=== PATIENT | female | born 1965 | race Caucasian/White ===

== ENCOUNTER 2023-06-01 11:22 | Outpatient (AMB) | payer MEDICARE, MEDICAID, SELFPAY ==
--- NOTE | 2023-06-01 11:24 | MHC.OFFVIS ---
Intake Vital Signs 06/01/23 11:27 Height 5 ft 9.5 in Weight 186 lb BMI 27.1 BP 126/82 Blood Pressure Location Lt brachial Position Sitting Intake Visit Reasons: POSITIVE HPV/PCP REFERRAL Family Service Aide Required: No Information Interpreted: non-clinical & clinical Accompanied by: Significant Other Allergies No Known Allergies Allergy (Verified 06/01/23 11:28) Post menopausal: Yes (age 48 ) HPI HPI Comments History of Present Illness Details The patient is presenting from to [facility] regarding HPV positive Pap. Report not available. [facility] Surgical History Hx of tonsillectomy Social History Alcohol intake: former Patient Tobacco Use Status: Current everyday Tobacco user Female Reproductive History Menstrual Age of Menarche: 13 Age of menopause: 48 Total pregnancies: 2 Number of Living Children: 1 Ab spontaneous: 1 History of abnormal pap smear: Yes Review of Systems Const All systems reviewed & are unremarkable except as noted in HPI and below Physical Exam Vital Signs: Last Vital Signs BP 126/82 06/01/23 11:27 BMI result Body Mass Index 27.1 General: Yes no CVA tenderness External Female Exam: normal external appearance and normal appearance of the urethra Speculum Exam - Vagina: normal appearance of the vagina, normal palpation, no lesions and no masses Speculum Exam - Cervix: normal appearance of the cervix, normal palpation, no lesions, no masses and nontender Bimanual exam- vagina & uterus: normal bimanual exam, normal palpation, uterine size normal, normal palpation, uterine shape normal, No Cervical tenderness present and non-tender Bimanual Exam- Adnexa, other: normal adnexae Back/Spine/Pelvis Back: no CVA tenderness Office Procedures Colposcopy Before the procedure was started discussed with the patient the procedure, alternatives & all the risks associated with the procedure (bleeding, infection, injury to vagina, bladder, vessels, possible need for transfusion with all its risks) then patient signed the consent HPV positive Speculum inserted, acetic acid used Colposcopy done Transformation zone seen, acetowhite lesions identified at 5+6+7+12+1 o?clock, cervical biopsies taken from 5+6+7+12+1 o?clock, ECC done afterwards. Vaginoscopy of the upper vagina showed no evidence of any aceto-white lesions Monsel solution used for hemostasis. The patient tolerated well . At the end the patient was instructed to call if temp>100.4, abdominal pain, n/v, bleeding; The patient was given the following instructions: nothing per vagina, no intercourse or bath tub use. All questions answered the patient verbalized understanding. Instructed the patient to make an appointment in 2 weeks for follow-up This note was generated with a voice recognition program. Some errors may have been overlooked during the review of this note. Sometimes these errors may affect the content or meaning of a given sentence. [id number] of cervix including upper vagina with biopsy and ECC Procedure code (CPT) selection complete Assessment & Plan Assessment & Plan (1) Cervical high risk HPV (human papillomavirus) test positive: Code(s): R87.810 - Cervical high risk human papillomavirus (HPV) DNA test positive Plan: Discussed with the patient the result of her pap/HPV positive, its significance, risk of progression, persistence, and regression if untreated. the false positive/negative rate being a screening test, the need for diagnostic test -colposcopy, biopsy, endocervical curettage. The patient verbalized understanding and agreed with the plan, all questions answered. Colposcopy done, see procedure note Orders: Orders AMB Colposcopy Today R87.810 - Cervical high risk human papillomavirus (HPV) DNA test positive Coding Level of Care Code New Pt Level 3 (82281) Procedure Only Diagnoses Cervical high risk HPV (human papillomavirus) test positive R87.810 CPT Codes Colposcopy - CPT: 80650-Zeosenuuc of cervix including upper vagina with biopsy and ECC ([id number])
[2023-06-01 11:27] VITALS: BP 126/82; BMI 27.1
== END 2023-06-01 12:26 | disposition home or self-care (01) ==
LOC: HO.HWS 11:22
PROVIDERS: PCP Family Medicine; Visit Provider Obstetrics & Gynecology
DX: R87.810 Cervical high risk human papillomavirus (HPV) DNA test positive (principal)
CPT/HCPCS: 57454; 99203

== ENCOUNTER 2023-06-01 11:22 | Outpatient (REF) | payer MEDICARE, MEDICAID, SELFPAY | END 2023-06-01 11:23 | disposition home or self-care (01) | LOC: HO.LNP 11:22 | PROVIDERS: PCP Family Medicine; Visit Provider Obstetrics & Gynecology | DX: R87.810 Cervical high risk human papillomavirus (HPV) DNA test positive (principal) | CPT/HCPCS: 57454; 88305; 99202 ==

== ENCOUNTER 2023-06-21 07:56 | Outpatient (AMB) | payer MEDICARE, MEDICAID, SELFPAY ==
--- NOTE | 2023-06-21 07:58 | A.OFFVIS_ITS ---
Intake Vital Signs 06/21/23 08:00 Height 5 ft 9.5 in Weight 185 lb 3.013 oz BMI 27.0 BP 112/64 Intake Visit Reasons: colpo results [employer] Person Required: No Information Interpreted: non-clinical & clinical Accompanied by: Spouse Allergies No Known Allergies Allergy (Verified 06/21/23 08:01) Post menopausal: Yes HPI HPI Comments History of Present Illness Details PrA. Endocervix, curettage: Endocervical glandular and scant squamous epithelium; negative for dysplasia. B. Cervix, 1:00, biopsy: Squamous and endocervical glandular mucosa with inflammation and reactive changes; negative for dysplasia. C. Cervix, 5:00, biopsy: Squamous mucosa; negative for dysplasia; no endocervical glandular component present. D. Cervix, 6:00, biopsy: Squamous mucosa; negative for dysplasia; no endocervical glandular component present. E. Cervix, 7:00, biopsy: Squamous mucosa and scant detached endocervical glandular epithelium; negative for dysplasia. F. Cervix, 12:00, biopsy: Squamous and endocervical glandular mucosa with marked inflammation and reactive changes; negative for dysplasia. Comment: There is no previous Pap test at [facility] for correlation. [facility] Surgical History Hx of tonsillectomy Social History Alcohol intake: former Patient Tobacco Use Status: Current everyday Tobacco user Female Reproductive History Menstrual Age of Menarche: 13 Review of Systems Const All systems reviewed & are unremarkable except as noted in HPI and below Reports as per HPI and Reports no additional complaints GI Reports no additional complaints Reports no additional complaints Physical Exam Vital Signs: Last Vital Signs BP 112/64 06/21/23 08:00 BMI result Body Mass Index 27.0 Assessment & Plan Assessment & Plan (1) Cervical high risk HPV (human papillomavirus) test positive: Code(s): R87.810 - Cervical high risk human papillomavirus (HPV) DNA test positive Plan: Discussed with the patient the pathology results of the colposcopy biopsies & endocervical curettage (negative). Discussed with the patient the sensitivity specificity, positive and negative predictive value in detecting cervical cancer in addition discussed the regression, persistence and progression rates. Recommended co-testing in 12 months, if cytology and or HPV are abnormal will proceed was colposcopy biopsy and endocervical curettage. Instructions given to the patient to schedule a co test appointment in 1 year. All questions answered the patient verbalized understanding. Coding Level of Care Code Est Pt Level 3 (31405) Diagnoses Cervical high risk HPV (human papillomavirus) test positive R87.810
[2023-06-21 08:00] VITALS: BP 112/64; BMI 27.0
== END 2023-06-21 09:26 | disposition home or self-care (01) ==
LOC: HO.HWS 07:56
PROVIDERS: PCP Family Medicine; Visit Provider Obstetrics & Gynecology
DX: R87.810 Cervical high risk human papillomavirus (HPV) DNA test positive (principal)
CPT/HCPCS: 99213

== ENCOUNTER → 2023-06-21 07:56 | Outpatient (BNVA) | payer MEDICARE, MEDICAID, SELFPAY | PROVIDERS: PCP Family Medicine; Visit Provider Obstetrics & Gynecology | DX: R87.810 Cervical high risk human papillomavirus (HPV) DNA test positive (principal) | CPT/HCPCS: 99212 ==

== ENCOUNTER 2023-07-29 09:34 | Outpatient (REF) | payer MEDICARE, MEDICAID, SELFPAY ==
[2023-07-29 14:48] LABS: Cholesterol 128 mg/dL (<200); HDL Cholesterol 32 mg/dL (>40); LDL Cholesterol Calculated 21 mg/dL (<100); Triglycerides 377 mg/dL (<150)
== END 2023-07-29 09:35 | disposition home or self-care (01) ==
LOC: HO.CHCLDS 09:34
PROVIDERS: Visit Provider Family Medicine
DX: E78.1 Pure hyperglyceridemia (principal)
CPT/HCPCS: 36415; 80061

== ENCOUNTER 2023-08-02 11:00 | Outpatient (REF) | payer MEDICARE, MEDICAID, SELFPAY ==
[2023-08-08 06:39] LABS: Apolipoprotein B 68 mg/dL (<90)
== END 2023-08-02 11:01 | disposition home or self-care (01) ==
LOC: HO.CHCLDS 11:00
PROVIDERS: Visit Provider Family Medicine
DX: E78.1 Pure hyperglyceridemia (principal)
CPT/HCPCS: 36415; 82172

== ENCOUNTER 2023-11-16 08:49 | Outpatient (REF) | payer MEDICARE, MEDICAID, SELFPAY ==
[2023-11-16 15:29] LABS: Alanine Aminotransferase 48 U/L (0-31); Albumin Level 4.6 g/dL (3.5-5.0); Alkaline Phosphatase 51 U/L (39-117); Anion Gap 16 (12-20); Aspartate Amino Transferase 57 U/L (5-31); Bilirubin Total 0.3 mg/dL (0.0-1.0); Blood Urea Nitrogen 21 mg/dL (9-16); Calcium 10.2 mg/dL (8.4-10.2); Carbon Dioxide 26 mmol/L (22-29); Chloride 106 mmol/L (96-108); Cholesterol 124 mg/dL (<200); Estimated Glomerular Filt Rate 58; Glucose Random 95 mg/dL (60-115); HDL Cholesterol 53 mg/dL (>40); LDL Cholesterol Calculated 44 mg/dL (<100); Potassium 3.9 mmol/L (3.3-5.1); Sodium 144 mmol/L (135-145); Total Protein 7.5 g/dL (6.5-8.0); Triglycerides 135 mg/dL (<150)
== END 2023-11-16 08:50 | disposition home or self-care (01) ==
LOC: HO.CHCLDS 08:49
PROVIDERS: Visit Provider Family Medicine
DX: E78.1 Pure hyperglyceridemia (principal); A04.8 Other specified bacterial intestinal infections
CPT/HCPCS: 36415; 80053; 80061

== ENCOUNTER 2023-12-21 08:28 | Outpatient (REF) | payer MEDICARE, MEDICAID, SELFPAY ==
[2023-12-21 15:26] LABS: Alanine Aminotransferase 32 U/L (0-31); Albumin Level 4.5 g/dL (3.5-5.0); Alkaline Phosphatase 54 U/L (39-117); Anion Gap 14 (12-20); Aspartate Amino Transferase 30 U/L (5-31); Bilirubin Total 0.3 mg/dL (0.0-1.0); Blood Urea Nitrogen 17 mg/dL (9-16); Calcium 10.2 mg/dL (8.4-10.2); Carbon Dioxide 28 mmol/L (22-29); Chloride 106 mmol/L (96-108); Estimated Glomerular Filt Rate > 60; Glucose Random 76 mg/dL (60-115); Potassium 4.1 mmol/L (3.3-5.1); Sodium 144 mmol/L (135-145); Total Protein 7.5 g/dL (6.5-8.0)
== END 2023-12-21 08:29 | disposition home or self-care (01) ==
LOC: HO.CHCLDS 08:28
PROVIDERS: Visit Provider Family Medicine
DX: R74.01 Elevation of levels of liver transaminase levels (principal)
CPT/HCPCS: 36415; 80053

== ENCOUNTER 2024-07-28 13:14 | Outpatient (REF) | payer MEDICARE, MEDICAID, SELFPAY ==
[2024-07-28 14:57] LABS: MANUAL DIFF FLAG NO
[2024-07-28 15:04] LABS: Basophils Percent Auto 0.4 % (0-2); Eosinophils Absolute Auto 0.3 X10*3/uL (0.0-0.4); Eosinophils Percent Auto 4.1 % (0-4); Hematocrit 40.4 % (37.0-47.0); Hemoglobin 13.5 g/dl (12.0-16.0); Imm Gran Abs Auto 0.03 X10*3/uL (0.00-0.03); Imm Gran Pct Auto 0.4 % (0.0-0.4); Mean Corpuscular HGB Conc 33.4 g/dl (31.0-35.0); Mean Corpuscular Hemoglobin 31.2 pg (27.0-33.0); Mean Corpuscular Volume 93.3 fL (80.0-98.0); Mean Platelet Volume 12.5 fL (9.4-12.3); Monocytes Absolute Auto 0.7 X10*3/uL (0.1-1.2); Monocytes Percent Auto 9.6 % (2-11); Neutrophils Percent Auto 56.5 % (45-73); Platelet Count 259 X10*3/uL (160-400); Red Blood Count 4.33 X10*6/uL (4.20-5.50); Red Cell Distribution Width 12.5 % (11.0-16.0)
[2024-07-28 15:51] LABS: Creatinine Urine 193.67 mg/dL; Microalbum/Creatinine Ratio Ur 16.5 ug/mg cr (<30)
[2024-07-28 15:55] LABS: Alanine Aminotransferase 34 U/L (0-31); Albumin Level 4.8 g/dL (3.5-5.0); Alkaline Phosphatase 47 U/L (39-117); Anion Gap 14 (12-20); Aspartate Amino Transferase 44 U/L (5-31); Bilirubin Total 0.5 mg/dL (0.0-1.0); Blood Urea Nitrogen 21 mg/dL (9-16); C Reactive Protein 0.19 mg/dL (< or = 0.50); Carbon Dioxide 28 mmol/L (22-29); Chloride 107 mmol/L (96-108); Cholesterol 140 mg/dL (<200); Estimated Glomerular Filt Rate 54; Glucose Random 88 mg/dL (60-115); HDL Cholesterol 41 mg/dL (>40); LDL Cholesterol Calculated 63 mg/dL (<100); Potassium 4.2 mmol/L (3.3-5.1); Sodium 145 mmol/L (135-145); Total Protein 7.5 g/dL (6.5-8.0); Triglycerides 184 mg/dL (<150)
[2024-07-28 16:10] LABS: TSH reflex Free T4 3.61 uIU/mL (0.32-4.0)
[2024-07-31 22:34] LABS: TS Negative Control Passed; TS Panel A 0; TS Panel B 0; TS Positive Control Passed; TSpotTB Negative (Negative)
== END 2024-07-28 13:15 | disposition home or self-care (01) ==
LOC: HO.CHCLDS 13:14
PROVIDERS: Visit Provider Family Medicine
DX: R74.01 Elevation of levels of liver transaminase levels (principal); E78.1 Pure hyperglyceridemia; R61 Generalized hyperhidrosis
CPT/HCPCS: 36415; 80053; 80061; 82043; 82570; 84443; 85025; 86140; 86481

== ENCOUNTER 2024-08-16 07:51 | Outpatient (REF) | payer MEDICARE, MEDICAID, SELFPAY ==
--- NOTE | ~2024-08-16 | US_ITS ---
EXAMINATION: US COMPLETE ABDOMEN WITH LIVER ELASTOGRAPHY CLINICAL INFORMATION: Elevated liver enzymes. COMPARISON: None available. TECHNIQUE: Real-time imaging of the abdominal viscera. Noninvasive ultrasound liver fibrosis assessment is performed using Zev ElastPQ point quantification shear wave elastography (pSWE) with a C5-2 MHz transducer. Multiple elastography samples are obtained. FINDINGS: PANCREAS: The visualized pancreatic head and body are normal in appearance. The remainder of the pancreas is obscured from visualization by the overlying bowel gas. ABDOMINAL AORTA: The proximal, middle, and distal aortic segments are normal in caliber. INFERIOR VENA CAVA: Visualized portions are normal. LIVER: The liver demonstrates normal size and contour but with slightly increased echogenicity suggesting steatosis. No focal lesion or intrahepatic biliary duct dilatation. The right lobe measures 16.4 cm in length. The left lobe measures 7.2 cm in length. Portal flow is towards the liver (hepatopetal). Shear wave liver elastography median stiffness is 0.18 m/s (reference: normal median stiffness is 1.3 m/s or less). IQR/median stiffness to assess sampling precision is 0.35 (reference: good quality data set is IQR/median stiffness of 0.15 or less). GALLBLADDER: Normal. The gallbladder is physiologically distended without evidence of stones, sludge, polyps, wall thickening or pericholecystic fluid. COMMON BILE DUCT: Normal in caliber measuring 0.4 cm in diameter. RIGHT KIDNEY: Normal. No hydronephrosis. No renal calculi or focal parenchymal lesions. The kidney measures 11.1 cm in maximum dimension. LEFT KIDNEY: Normal. No hydronephrosis. No renal calculi or focal parenchymal lesions. The kidney measures 10.7 cm in maximum dimension. SPLEEN: Normal. The spleen measures 9.4 cm in maximum dimension. FREE FLUID: None. US/US abdomen comp w elastography IMPRESSION: 1. Mildly echogenic liver. 2. Liver elastography: Although measurements are suggestive of compensated advanced chronic liver disease, there is statistical variability of the sampling which decreases accuracy. REFERENCE: Society of Radiologists in Ultrasound Liver Stiffness Thresholds (2019): LIVER STIFFNESS THRESHOLDS: *Liver Stiffness equal or less than 1.3 m/s: High probability of being normal. *Liver Stiffness less than 1.7 m/s: In the absence of other known clinical signs, rules out compensated advanced chronic liver disease. *Liver Stiffness 1.7-2.1 m/s: Suggestive of compensated advanced chronic liver disease but need further test for confirmation. *Liver Stiffness over 2.1 m/s: Rules in compensated advanced chronic liver disease. *Liver Stiffness over 2.4 m/s: Suggestive of clinically significant portal hypertension. QUALITY OF DATA SET: *IQR/Median value equal or less than 0.15 implies a quality data set. *IQR/Median value over 0.15 implies a poor quality data set. SIGNIFICANT CHANGE FROM PRIOR EXAM: Significant change if liver stiffness measurement is 10% or greater from prior exam. OTHER CONSIDERATIONS: The stage of liver fibrosis may be overestimated in the setting of acute hepatitis, liver inflammation, elevated liver function tests, hepatic vascular congestion, obstructive cholestasis, non-fasting state, and infiltrative diseases such as amyloidosis and lymphoma. In some patients with NAFLD, the liver stiffness thresholds for compensated advanced chronic liver disease may be lower. In causes other than viral hepatitis and NAFLD, liver stiffness thresholds are not well established. Electronically signed by: Rob Parker MD 09/28/2024 02:02 PM JOHANA SAHNI
== END 2024-08-16 07:52 | disposition home or self-care (01) ==
LOC: HO.US 07:51
PROVIDERS: PCP Family Medicine; Visit Provider Family Medicine
DX: R74.01 Elevation of levels of liver transaminase levels (principal)
CPT/HCPCS: 76700; 76981

== ENCOUNTER 2025-05-14 08:12 | Outpatient (REF) | payer MEDICARE, MEDICAID, SELFPAY ==
--- NOTE | ~2025-05-14 | XR_ITS ---
CLINICAL HISTORY: 60 yo F with left hip pain, + throcanteric tenderness, send to [facility] Two views of the left hip Comparison: None provided Findings: No acute fracture or dislocation. Moderate degenerative change of the left femoral-acetabular joint. The soft tissues are unremarkable. IMPRESSION: No acute findings. Moderate degenerative changes. This document has been electronically signed by: Sp Esquivel MD on 05/15/2025 11:31:04
--- OUTSIDE RECORDS SUMMARY | 2025-05-14 08:16 | XMS_ITS | Encounter Summary ---
Author Organization [employer] Address [address] [place] [address] Care Team Providers Care Shipyard Laborer Name Role Phone Cecilia Huggins MD Primary Care Provider [phone] Reason for Visit * Reason Onset Date Comments Appointment Request 07/26/2023 Encounter Details Date Type Department Care Team ([facility] st Contact Info) Description 07/26/2023 Telephone [facility] [address], [place] [id number] Cecilia Huggins MD [address] [place] [address] Appointment Request Social History Tobacco Use Types Packs/Day Years Used Date Smoking Tobacco: Every Day Cigarettes Passive Smoke Exposure: Never Smokeless Tobacco: Never Alcohol Use Standard Drinks/Week Comments Never 0 (1 standard drink = 0.6 oz pur e alcohol) Depression Answer Date Recorded Patient Health Questionnaire-9 Score 17 12/07/2022 Depression Answer Date Recorded Patient Health Questionnaire-2 Score 3 12/07/2022 Comments Unknown Sex and Gender Information Value Date Recorded Sex Assigned at Female 09/14/2022 10:39 AM EDT Legal Sex Female 10:39 AM EDT Gender Identity Female 09/14/2022 10:39 AM EDT Sexual Orientation Straight 09/14/2022 10 :39 AM EDT documented as of this encounter Miscellaneous Notes * Telephone Encounter - Amanda Dillon - 07/26/2023 11:32 AM EDT Tc from patients spouse with pt on the line requesting a appt to f/u on US results. States patient was advised to f/u with PCP for additional lab tests including liver and A1C. Please call [phone] documented in this encounter Plan of Treatment Not on file documented as of this encounter Visit Diagnoses Not on filedocumented in this encounter Additional Health Concerns Assessment Noted Time PHQ-9 Depression Total Score: 17 023 2:38 PM EST documented as of this encounter Care Teams Shipyard Laborer Relationship Specialty Start Date End Date Cecilia Huggins MD [address] [place] [id number] PCP - General Family Medicine 01/01/22 documented as of this encounter
== END 2025-05-14 08:13 | disposition home or self-care (01) ==
LOC: HO.HMGCX 08:12
PROVIDERS: PCP Family Medicine; Visit Provider Family Medicine
DX: M25.552 Pain in left hip (principal)
CPT/HCPCS: 73502

== ENCOUNTER → 2025-05-14 08:36 | Outpatient (BNV) | payer MEDICARE, MEDICAID, SELFPAY | PROVIDERS: PCP Family Medicine; Visit Provider Radiology Vascular & Interventional Radiology | DX: M16.12 Unilateral primary osteoarthritis, left hip (principal) | CPT/HCPCS: 73502 ==

== ENCOUNTER 2025-05-14 09:01 | Outpatient (REF) | payer MEDICARE, MEDICAID, SELFPAY ==
[2025-05-14 14:52] LABS: MANUAL DIFF FLAG NO
[2025-05-14 14:57] LABS: Basophils Percent Auto 0.5 % (0-2); Eosinophils Absolute Auto 0.3 X10*3/uL (0.0-0.4); Eosinophils Percent Auto 4.9 % (0-4); Hematocrit 36.9 % (37.0-47.0); Imm Gran Abs Auto 0.02 X10*3/uL (0.00-0.03); Imm Gran Pct Auto 0.3 % (0.0-0.4); Lymphocytes Absolute Auto 2.1 X10*3/uL (1.2-4.9); Lymphocytes Percent Auto 34.5 % (20-40); Mean Corpuscular HGB Conc 32.5 g/dl (31.0-35.0); Mean Corpuscular Hemoglobin 31.1 pg (27.0-33.0); Mean Corpuscular Volume 95.6 fL (80.0-98.0); Mean Platelet Volume 12.6 fL (9.4-12.3); Monocytes Absolute Auto 0.7 X10*3/uL (0.1-1.2); Monocytes Percent Auto 10.8 % (2-11); Platelet Count 218 X10*3/uL (160-400); Red Blood Count 3.86 X10*6/uL (4.20-5.50); Red Cell Distribution Width 12.8 % (11.0-16.0); White Blood Count 6.1 X10*3/uL (4.8-10.8)
[2025-05-14 15:20] LABS: Alanine Aminotransferase 25 U/L (0-31); Albumin Level 4.6 g/dL (3.5-5.0); Alkaline Phosphatase 45 U/L (39-117); Anion Gap 11 (12-20); Aspartate Amino Transferase 32 U/L (5-31); Bilirubin Total 0.3 mg/dL (0.0-1.0); Blood Urea Nitrogen 24 mg/dL (9-16); Calcium 9.5 mg/dL (8.4-10.2); Carbon Dioxide 28 mmol/L (22-29); Chloride 111 mmol/L (96-108); Cholesterol 132 mg/dL (<200); Estimated Glomerular Filt Rate 54; Glucose Random 89 mg/dL (60-115); HDL Cholesterol 45 mg/dL (>40); LDL Cholesterol Calculated 61 mg/dL (<100); Sodium 145 mmol/L (135-145); Total Protein 6.9 g/dL (6.5-8.0); Triglycerides 132 mg/dL (<150)
[2025-05-14 15:41] LABS: TSH reflex Free T4 5.95 uIU/mL (0.32-4.0); Vitamin D 25-OH Total 90.7 ng/mL (>30)
[2025-05-14 16:24] LABS: Free T4 (Free Thyroxine) 0.96 ng/dL (0.71-1.85)
== END 2025-05-14 09:02 | disposition home or self-care (01) ==
LOC: HO.CHCLDS 09:01
PROVIDERS: Visit Provider Family Medicine
DX: E55.9 Vitamin D deficiency, unspecified (principal); E78.1 Pure hyperglyceridemia
CPT/HCPCS: 36415; 80053; 80061; 82306; 84439; 84443; 85025

== ENCOUNTER 2025-07-26 11:14 | Outpatient (REF) | payer MEDICARE, MEDICAID, SELFPAY ==
--- OUTSIDE RECORDS SUMMARY | 2025-07-26 10:45 | XMS_ITS | Encounter Summary ---
Author Organization [employer] Address [address] [place] [address] [address] [place] [address] Care Team Providers Care Wallpaper Printer Helper Name Role Phone Cecilia Huggins MD Primary Care Provider [phone] Reason for Referral * Consultation (Routine) - Pending Review Specialty Diagnoses / Procedures Referred By Troy arora Referred To Contact General Surgery Diagnoses External hemorrhoid, bleeding Cecilia Huggins MD [address] [place] [address] Phone: tel: fax: Referral ID Status Reason Start Date Expiration Date Visits Requested Visits Authorized [id number] Pending Review Specialty Services Required 07/26/2025 07/26/2026 1 1 Reason for Visit * Reason Comments Hemorrhoids Encounter Details Date Type Department Care Team ([facility] Contact Info) Description 07/26/2025 10:45 AM EDT Office Visit [facility] [address] [place], [place] [phone] Cecilia Huggins MD [address] [place], [place] [phone] External hemorrhoid, bleeding (Primary Dx); Unexplained night sweats; Encounter for immunization; Hypertriglyceridemia Social History Tobacco Use Types Packs/Day Years Used Date Smoking Tobacco: Former Cigarettes Passive Smoke Exposure: Never Smokeless Tobacco: Never Alcohol Use Standard Drinks/Week Comments Not Currently 0 (1 standard drink = 0.6 oz pur e alcohol) Depression Answer Date Recorded Patient Health Questionnaire-9 Score 0 05/11/2025 Patient Health Questionnaire-9 Score 0 05/11/2025 Last PHQ-9: Questionnaire Data Not on file 0 05/11/2025 Housing Stability Answer Date Recorded What is your housing situation today? I have [place] box 05/04/[address] you li ve. Do you have problems with any of the following? None of the above 05/04/2025 Food Insecurity Answer Date Recorded Within the past 12 months, y ou worried that your food would run out before you got money to buy more: Never True 05/04/2025 Within the past 12 months,th e food you bought just didn't last and you didn't have enough money to get more: Never True Transportation Answer Date Recorded In the past 12 months, has l ack of transportation kept you from medical appts, meetings, work or from getting things needed for daily living? No 05/04/2025 Utilities Answer Date Recorded In the past 12 months, has t he electric, gas, oil or water company threatened to shut off services in your home? No 05/04/2025 Depression Answer Date Recorded Patient Health Questionnaire-2 Score 0 05/11/2025 Internet Access Answer Date Recorded Internet Access Q1 Yes 05/04/2025 Internet Access Q2 Not on file 05/04/2025 Comments Unknown Sex and Gender Information Value Date Recorded Sex Assigned at Female 09/14/2022 10:39 AM EDT Legal Sex Female 10:39 AM EDT Gender Identity Female 09/14/2022 10:39 AM EDT Sexual Orientation Straight 09/14/2022 10 :39 AM EDT documented as of this encounter Last Filed Vital Signs Vital Sign Reading Time Taken Comments Blood Pressure 115/67 07/26/2025 10:43 AM EDT Pulse 76 07/26/2025 10:43 AM EDT Temperature 37.1 C (98.7 F) 07/26/2025 10:43 AM EDT Respiratory Rate 20 07/26/2025 10:43 AM EDT Oxygen Saturation 98% 07/26/2025 10:43 AM EDT Inhaled Oxygen Concentration - - Weight 78 kg (172 lb) 07/26/2025 10:43 AM EDT Height 176 cm (5' 9.29 ) 07/26/2025 10:43 AM EDT Body Mass Index 25.19 07/26/2025 10:43 AM EDT documented in this encounter Progress Notes * Cecilia Huggins MD - 07/26/2025 10:45 AM EDT Images from the original note were not included. Subjective Patient ID: Jennifer Thapa is a 60 y.o. female who presents for Hemorrhoids. Chief Complaint Rectal mass, feeling a rectal mass , rectal bleeding 2 weeks ago , night sweats, fatigue, unexplained weight gain History of Present Illness Jennifer Thapa presents with a rectal mass and night sweats. She reports feeling a rectal mass that has been present for about 30 years but has recently grown larger. The patient experienced a bowel movement with significant bleeding about 2 weeks ago. She has tried various treatments including Tucks and Preparation H, but has not attempted sitz baths. The hemorrhoids are causing discomfort and are described as pretty inflamed. In addition to the rectal issue, Ms. Thapa complains of night sweats that have been worsening. She reports having to change her sleep shirt twice a night sometimes due to excessive sweating. The patient mentions being in menopause for over 10 years. She also reports feeling exhausted all the time. Ms. Thapa expresses concern about recent weight gain despite increased exercise. She states, I work out every day. I have an oil belt, a bicycle, and I go for walks, and I walk fast, and I'm puttingweight on, and I don't understand why. She describes her diet as minimal, typically consisting of an apple for breakfast and a salad for lunch and dinner. The patient reports adherence to her exercise regimen but expresses frustration with the lack of expected weight loss. She mentions feeling hungry in the middle of the night, which may be affecting her weight management efforts. 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 Gastrointestinal: Positive for rectal bleeding. Review of Systems Objective Visit Vitals BP 115/67 Pulse 76 Temp 98.7 ??F (37.1 ??C) (Oral) Resp 20 Ht 5' 9.29 (1.76 m) Wt 172 lb (78 kg) SpO2 98% BMI 25.19 kg/m?? Smoking Status Former BSA 1.95 m?? Physical Exam Constitutional: General: She is not in acute distress. Appearance: She is not ill-appearing. HENT: Head: Normocephalic and atraumatic. Nose: No congestion. Pulmonary: Effort: Pulmonary effort is normal. No respiratory distress. Breath sounds: Normal breath sounds. Genitourinary: Comments: Very enlarged hemorrhoids at 12 o'clock, with internal area of erosion, swelling Musculoskeletal: Cervical back: Normal range of motion. Neurological: General: No focal deficit present. Mental Status: She is alert. Psychiatric: Mood and Affect: Mood normal. 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 Hemorrhoids Assessment: Patient reports feeling a rectal mass. On examination, hemorrhoids are observed, which are inflamed and larger than previously noted. The patient mentions having had hemorrhoids for about30 years, but they have recently increased in size. There is also evidence of bleeding, with the patient reporting a bowel movement consisting of nothing but blood about 2 weeks ago. Previous conservative treatments including Tucks and Preparation H have been ineffective. Plan: - Prescribe nitroglycerin ointment to reduce inflammation - Refer to surgeon at [facility] for potential hemorrhoid removal - Prescribe biopain medication for pain management - Patient to apply nitroglycerin ointment as directed - Informed patient about the surgical option of removing the affected vein Night Sweats Assessment: Patient reports severe night sweats, requiring changing of sleep shirt twice nightly. Patient reports being post-menopausal for over 10 years. Plan: - Order blood work to check for anemia - Recheck thyroid function - Check hormone levels Unintentional Weight Gain Assessment: Patient reports unintentional weight gain despite increased physical activity, including daily workouts with an oil belt, bicycle, and fast walking. Patient reports minimal food intake. Review of records shows a 5-pound weight gain since last visit. BMI is in the overweight category butnot obese. Current eating habits may be contributing to weight retention due to the body's response to perceived nutrient scarcity. Plan: - Educate patient on importance of regular, balanced meals including protein - Recommend three meals per day with healthy protein sources - Monitor weight at follow-up visits Abnormal Liver Function Tests Assessment: Previous liver function tests were slightly elevated. This may be contributing to the patient's reported fatigue. Plan: - Recheck liver function tests Hyperlipidemia Assessment: Patient has a history of hyperlipidemia, previously treated with medication. Current lipid status unknown. Plan: - Order fasting lipid panel to reassess cholesterol and triglyceride levels Preventive Care Assessment: Patient is due for a Pap smear. Previous Pap in 2022 was positive for HPV, with subsequent specialist follow-up. Patient reports being cleared twice by the specialist. Recent mammogram performed at [facility]. Patient inquired about flu and COVID-19 vaccinations. Plan: - Schedule Pap smear for Wednesday at 9 AM - Retrieve mammogram results from [facility] - Advise patient to get flu and COVID-19 vaccinations at local pharmacy ([employer] or [employer]) when available at the end of July - Offer to add patient to the clinic's vaccination list for notification when vaccines are available - Administer 2nd dose of Hepatitis A vaccine during current visit documented in this encounter Plan of Treatment Upcoming Encounters Date Type Department Care Team (Late st Contact Info) Description 07/30/2025 9:00 AM EDT Procedure Visit [facility] [address] [place] [address] Cecilia Huggins MD [address] [place] [address] Scheduled Orders Name Type Priority Associated Diagnoses Orde r Schedule FSH Lab Routine Unexplained night sweats Expected: 07/26/2025, Expires: 07/26/2026 Estradiol Lab Routine Unexplained night sweats Expected: 07/26/2025, Expires: 07/26/2026 Scheduled Referrals Name Type Priority Associated Diagnoses Orde r Schedule Referral to General Surgery Outpatient Referral Routine External hemorrhoid, bleeding Expected: 07/26/2025 (Approximate), Expires: 07/26/2026 documented as of this encounter Procedures Procedure Name Priority Date/Time Associated Diagnosis Comments LIPID PANEL, STANDARD Routine 07/26/2025 11:18 AM EDT Hypertriglyceridemi a documented in this encounter Results * (ABNORMAL) Lipid Panel, Standard (07/26/2025 11:18 AM EDT) Triglycerides 244(H) <150 mg/dL [facility] Comment:Desirable Triglyceri de: less than 150 mg/dLBorderline High Triglyceride 150-199 mg/dLHigh Triglyceride: 200-499 mg/dLVery High Triglyceride: greater than or equal to 5OO mg/dL Cholesterol 125 <200 mg/dL [facility] Comment:Desirable Cholestero l: less than 200 mg/dLBorderline High Cholesterol: 200-239 mg/dLHigh Cholesterol: greater than 239 mg/dL LDL Cholesterol Calculated 35 <100 mg/dL [facility] Comment:Desirable LDL: less than 100 mg/dLNear Optimal/Above Optimal LDL: 110- 129 mg/dLBorderline High LDL: 130-159 mg/dLHigh LDL: 160-189 mg/dLVery High LDL: greater than or equal to 190 mg/dL HDL Cholesterol 42 >40 mg/dL [facility] Comment:Desirable HDL: great er than 40 mg/dL Note: This HDL assay may give artificially low results in patients with liver disease. Blood Venous blood specimen / Unknown 07/26/2025 11:18 AM EDT 07/26/2025 2:14 PM EDT us Cecilia Huggins MD LAB BLOOD ORDERABLES Final Re sult [facility] [address] [place] [address] [phone] documented in this encounter Visit Diagnoses Diagnosis External hemorrhoid, bleeding- Primary Unexplained night sweats Encounter for immunization Hypertriglyceridemia Pure hyperglyceridemia documented in this encounter Additional Health Concerns Assessment Noted Time PHQ-9 Depression Total Score: 0 05/11/20 25 1:13 PM EDT documented as of this encounter Care Teams Wallpaper Printer Helper Relationship Specialty Start Date End Date Cecilia Huggins MD [address] [place] [address] PCP - General Family Medicine 01/01/22 documented as of this encounter
[2025-07-26 15:00] LABS: Free T4 (Free Thyroxine) 0.89 ng/dL (0.71-1.85)
[2025-07-26 15:01] LABS: Alanine Aminotransferase 26 U/L (0-31); Albumin Level 4.6 g/dL (3.5-5.0); Alkaline Phosphatase 68 U/L (39-117); Aspartate Amino Transferase 32 U/L (5-31); Cholesterol 125 mg/dL (<200); HDL Cholesterol 42 mg/dL (>40); Total Protein 7.1 g/dL (6.5-8.0); Triglycerides 244 mg/dL (<150)
--- OUTSIDE RECORDS SUMMARY | 2025-07-26 15:34 | XMS_ITS | Encounter Summary ---
Author Organization [employer] Address [address] [facility] [address] [place] [address] Care Team Providers Care Sap Architect Name Role Phone Cecilia Huggins MD Primary Care Provider [phone] Reason for Visit * Reason Onset Date Comments Nurse Triage 07/25/2025 Encounter Details Date Type Department Care Team ([facility] st Contact Info) Description 07/25/2025 Telephone [facility] [address] [place], [place] [phone] Cecilia Huggins MD [address] [place] [address] Nurse Triage Social History Tobacco Use Types Packs/Day Years [...] encounter Miscellaneous Notes * Telephone Encounter - Dorothy Mckeon RN - 07/25/2025 8:41 AM EDT Call returned to Jennifer Thapa to triage below at [phone]. Reports having hemmrhoid that is tender to touch. Pt reports having blood in stool approx 1-2 weeks ago x 1 episode. Pt has applied preparation H and tuks pads with no relief. Pt denies any difficulty with passing stool. No blood in stool recently. Pt adviesd of dispositon, agrees to sick onsite with PCP tomorrow. Reviewed home care advise, ER precautions and reasons to call back. Protocol Used: Rectal Symptoms (Adult) Protocol-Based Disposition: See in Office or Video Visit Today or Tomorrow Future Appointments Date Time Provider Department Center 07/26/2025 10:45 AM Cecilia Huggins MD [facility] Insurance verified as active per Real Time Eligibility in [facility]. Positive Triage Question: * Home treatment > 3 days for rectal pain and not improved * All higher-acuity triage questions were negative Care Advice Discussed: * Reassurance and Education - Mild Rectal Pain or Irritation * Warm Saline Sitz Baths - For Rectal Symptoms * Warm Saline Sitz Baths - How to Make a Sitz Bath * Stool Softener (Colace) for Hard Bowel Movements * Preventing Constipation * Reasons To Call Back - Severe rectal pain - You become worse * Telephone Encounter - Fred Ruddy - 07/25/2025 8:29 AM EDT Symptom: Rectal Symptoms - Not Bleeding Outcome: Schedule a same-day appointment or talk to a nurse or provider today Reason: Painful lump. (Pt states that the hemorrhoid is the size of a golf ball The caller accepted this outcome. Contact pt at [phone] documented in this encounter Plan of Treatment Upcoming Encounters Date Type Department Care Team ([facility] st Contact Info) Description 07/30/2025 9:00 AM EDT Procedure Visit [facility] PEDS [address] [place] [address] Cecilia Huggins MD [address] [place] [address] documented as of this encounter Visit Diagnoses Not on filedocumented in this encounter Additional Health Concerns Assessment Noted Time PHQ-9 Depression Total Score: 0 05/11/20 25 1:13 PM EDT documented as of this encounter Care Teams Sap Architect Relationship Specialty Start Date End Date Cecilia Huggins MD [address] [place] [address] PCP - General Family Medicine 01/01/22 documented as of this encounter
--- OUTSIDE RECORDS SUMMARY | 2025-07-26 15:34 | XMS_ITS | Encounter Summary ---
Author Organization [employer] Address [address] [facility] [address] [place] [address] Care Team Providers Care Job Trainer Name Role Phone Cecilia Huggins MD Primary Care Provider [phone] Encounter Details Date Type Department Care Team ([facility] st Contact Info) Description 07/26/2025 Orders Only [facility] [address] [place], [place] [id number] ProviderArgenis MD Social History Tobacco Use Types Packs/Day Years [...] is your housing situation today? I have elliott[place] box 05/04/[address] you [...] t he electric, gas, oil or water [employer] threatened to shut off services in your [...] AM EDT documented as of this encounter Plan of Treatment Upcoming Encounters Date Type Department Care Team (Late st Contact Info) Description 07/30/2025 9:00 AM EDT Procedure Visit [facility] [address] [place] [address] Cecilia Huggins MD [address] [place] [address] documented as of this encounter Procedures Procedure Name Priority Date/Time Associated Diagnosis Comments HM MAMMOGRAPHY Routine 02/16/2025 3:21 PM EDT documented in this encounter Results * Hm Mammography (02/16/2025 3:21 PM EDT) Anatomical Region Laterality Modality Other Historical Provider HEALTH MAINTENANCE Final Result documented in this encounter Visit Diagnoses Not on filedocumented in this encounter Additional Health Concerns Assessment Noted Time PHQ-9 Depression Total Score: 0 05/11/20 25 1:13 PM EDT documented as of this encounter Care Teams Job Trainer Relationship Specialty Start Date End Date Cecilia Huggins MD [address] [place] [address] PCP - General Family Medicine 01/01/22 documented as of this encounter
--- OUTSIDE RECORDS SUMMARY | 2025-07-26 15:34 | XMS_ITS | Encounter Summary ---
Author Organization [employer] Address [address] [place] [address] [address] [place] [address] Care Team Providers Care Risk Management Professional Name Role Phone Cecilia Huggins MD Primary Care Provider [phone] Reason for Visit * Reason Onset Date Comments Appointment Request 07/26/2023 Encounter Details Date Type Department Care Team ([facility] st Contact Info) Description 07/26/2023 Telephone [facility] [address] [place], [place] [phone] Cecilia Huggins MD [address] [place] [address] Appointment Request Social History Tobacco Use Types [...] tests including liver and A1C. Please call [phone] documented in this encounter Plan of Treatment Upcoming Encounters Date Type Department Care Team ([facility] st Contact Info) Description 07/30/2025 9:00 AM EDT Procedure Visit [facility] [address] [place] [address] Cecilia Huggins MD [address] [place] [address] documented as of this encounter Visit Diagnoses Not on filedocumented in this encounter Additional Health Concerns Assessment Noted Time PHQ-9 Depression Total Score: 17 023 2:38 PM EST documented as of this encounter Care Teams Risk Management Professional Relationship Specialty Start Date End Date Cecilia Huggins MD [address] [place] [address] PCP - General Family Medicine 01/01/22 documented as of this encounter
--- OUTSIDE RECORDS SUMMARY | 2025-07-26 15:34 | XMS_ITS | Clinical Summary ---
Author Organization [employer] Address [address] [facility] [address] [place] [address] Care Team Providers Care Data Deliverables Manager Name Role Phone Cecilia Huggins MD Primary Care Provider [phone] Allergies No known active allergies Medications aspirin 81 MG chewable tablet Chew 81 mg. 022 Active Omeprazole 20 MG Tablet Delayed Release Dispersible Take 20 mg by mouth 2 times daily. 28 tablet 023 Active rosuvastatin (Crestor) 40 MG tabletIndications :Hypertriglycerid emia Take 1 tablet (40 mg) by mouth in the morning. 90 tablet 1 025 Active amLODIPine (Norvasc) 10 MG tablet Take 1 tablet (10 mg) by mouth Once per day. 90 tablet 1 025 Active cholecalciferol VITAMIN D (Vitamin D-3) 50 MCG (2000 UT) capsuleIndication s:Vitamin D deficiency, unspecified Take 1 capsule (50 mcg) by mouth Once per day. 90 capsule 1 025 Active fenofibrate (Triglide) 160 MG tabletIndications :Mixed hyperlipidemia TAKE ONE TABLET EVERY MORNING 90 tablet 1 025 Active nitroglycerin (Nitro-Bid) 2 % ointment Place 0.5 inches on the skin every 6 (six) hours during the day. 30 g 025 2025 Active lidocaine (Xylocaine) 5 % ointmentIndicatio ns:External hemorrhoid, bleeding Apply topically if needed for mild pain. 50 g 025 Active docusate sodium (Colace) 100 MG capsule Take 1 capsule (100 mg) by mouth 2 times daily. 60 capsule 3 Active senna-docusate sodium (Senokot-S) 8.6-50 MG tablet Take 2 tablets by mouth Once per day. 60 tablet 2 Active hydrocortisone (Anusol-HC) 25 MG suppository Insert 1 suppository (25 mg) into the rectum 2 times daily for 7 days. 14 suppository 025 2024 Active fenofibrate (Triglide) 160 MG tabletIndications :Mixed hyperlipidemia Take 1 tablet (160 mg) by mouth in the morning. 90 tablet 1 025 2024 Discontinued predniSONE (Deltasone) 20 MG tablet Take 1 tablet (20 mg) by mouth Once per day for 5 days. 5 tablet 025 2024 docusate sodium (Colace) 100 MG capsule Take 1 capsule (100 mg) by mouth 2 times daily for 10 days. 20 capsule 025 2024 Discontinued Active Problems Problem Noted Date Diagnosed Date External hemorrhoid, bleeding 07/26/2025 Unexplained night sweats 07/27/2024 Assessment & Plan (07/27/2024 4:17 PM EDT): Ordering lab work and CXR for further evaluation of Sx. Transaminitis 12/20/2023 Assessment & Plan (07/27/2024 4:17 PM EDT): Ordering lab work for further evaluation. Assessment & Plan (12/20/2023 3:10 PM EST): Patient will be sent for labs: Comprehensive Metabolic Panel, for further evaluation; will follow up with results. TIA (transient ischemic attack) 11/11/2023 High risk HPV infection 09/01/2023 Cervical cancer screening 09/01/2023 Abnormal laboratory test result 07/27/2023 Abnormal Pap smear of cervix 06/03/2023 Overview (06/03/2023): -colpo with Dr. Dowling 06/02/2023 multiple cervical biopsies negative for displasia Hypertriglyceridemia 01/11/2023 Assessment & Plan (07/27/2024 3:50 PM EDT): Discussed medications and refills as needed. Assessment & Plan (11/11/2023 3:28 PM EST): Patient will be send for labs for further evaluation. 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 Consider sending for PFTs. Sleep apnea 12/07/2022 Assessment & Plan (07/27/2024 4:14 PM EDT): Advised to complete second sleep test due to Sx, pt declined wanting to complete test. Assessment & Plan (12/07/2022 4:16 PM EST): Symptoms c/w sleep apnea, also STOP-BANG w/ high risk. Will order sleep study. F/u results Overweight 12/07/2022 Assessment & Plan (07/27/2024 4:16 PM EDT): Pt is interested in weight loss treatment. Is not currently a candidate for Semaglutide treatment, will follow up. Assessment & Plan (12/07/2022 4:22 PM EST): Will check screening labs per request, especially given she has been feeling fatigued in the last couple of weeks. Other abnormal glucose 12/07/2022 Alcohol abuse 04/14/2022 Hypertensive disorder 04/14/2022 Assessment & Plan (07/27/2024 4:15 PM EDT): BP is at goal. Continue medications as prescribed. Ordering lab work for further evaluation. Assessment & Plan (12/07/2022 4:16 PM EST): Controlled. Continue current regimen, recommended avoid alcohol Vitamin D deficiency 04/14/2022 Encounters Date Type Department Care Team Description 07/26/2025 10:45 AM EDT Office Visit [facility] [address] [place] [address] Cecilia Huggins MD External hemorrhoid, bleeding (Primary Dx); Unexplained night sweats; Encounter for immunization; Hypertriglyceridemia 07/26/2025 Orders Only [facility] [address] [place] [address] Argenis Mcintosh MD 07/26/2025 Travel 07/25/2025 Telephone [facility] [address] [place] [address] Cecilia Huggins MD Nurse Triage 07/17/2025 Refill [facility] [address] [place] [address] Mary Lester MD Mixed hyperlipidemia 07/10/2025 Travel 07/10/2025 Telephone [facility] [address] [place] [address] Cecilia Huggins MD Nurse Triage 05/21/2025 Telephone [facility] [address] [place] [address] Cecilia Huggins MD Referral 05/15/2025 Results Follow-Up [facility] [address] [place] [address] Cecilia Huggins MD XR Hip 2 or 3 Views Left, CBC auto differential, Comprehensive Metabolic Panel, Additional followed-up results: 3 05/11/2025 1:00 PM EDT Office Visit [facility] [address] [place] [address] Cecilia Huggins MD Hypertriglyceridemia (Primary Dx); Vitamin D deficiency; Left hip pain; Primary hypertension 05/11/2025 Travel 05/09/2025 Telephone [facility] [address] [place] [address] Cecilia Huggins MD chart prep 05/04/[address] [facility] [address] [place] [address] [phone] Cecilia Huggins MD Pre-visit Planning (SDOH screening negative and Tobacco screening negative) from Last 3 Months Immunizations Immunization Administration Dates Next Due Hep A, Adult 07/26/2025,12/20/2023 Influenza injectable quadriv alent preservative free 07/27/2023,09/15/2022,01/01/2022,2021 Influenza, seasonal, injecta ble, preservative free 07/27/2024 Moderna Covid-19 Vaccine 12+ 12/11/2021, 04/16/2021,04/16/2021,2020 Pneumococcal Conjugate PCV 20 12/20/2023 RSV Bivalent 09/06/2023 Tdap 07/07/2022 Zoster, Recombinant 07/06/2022,05/05/2022 Social History Tobacco Use Types Packs/Day Years Used Date Smoking Tobacco: Former Cigarettes Passive Smoke Exposure: Never Smokeless Tobacco: Never Tobacco Cessation:Counseling Given: Not Answered Alcohol Use Standard Drinks/Week Comments Not Currently [...] Orientation Straight 09/14/2022 10 :39 AM EDT Last Filed Vital Signs Vital Sign Reading [...] Mass Index 25.19 07/26/2025 10:43 AM EDT Plan of Treatment Upcoming Encounters Date Type Department Care Team ([facility] st Contact Info) Description 07/30/2025 9:00 AM EDT Procedure Visit [facility] [address] [place] [address] Cecilia Huggins MD [address] [place] [address] Health Maintenance Due Date Last Done Comments CT Colonography 1965 FIT DNA/Cologuard 1965 FIT 1965 FOBT 1965 Sigmoidoscopy 1965 Hepatitis B Vaccines (1 of 3 - Risk 3-dose series) 2023 Cervical Cancer Screening 06/02/2024 HPV/Cotest 06/02/2024 02/16/2023, 04/0 02/2023, 02/13/2022 Pap Smear 06/02/2024 02/16/2023, 04/0 11/2021, 02/13/2022 Influenza Vaccine (#1) 2025 , 07/27/2023, 09/15/2022, Additional history exists Mammogram 02/16/2026 02/16/2025 SDOH Screening 05/04/2026 05/04/2025 Alcohol/Substance Use Screening 05/11/2026 05/11/2025 Depression Screening 05/11/2026 05/11/2025, 05/11/20 Disability Screening 05/11/2026 05/11/2025 Tobacco Screening 07/26/2026 07/26/2025 Colonoscopy 09/03/2026 09/03/2023 Colorectal Cancer Screening 09/03/2026 Lipid Panel 05/14/2030 07/26/2025, 04/17, 07/28/2024, Additional history exists DTaP/Tdap/Td Vaccines (2 - Td or Tdap) 07/07/2032 07/07/2022 HIV Screening Completed 01/14/2022 Hepatitis C Screening Completed 01/14/2022 Zoster Vaccines Completed 07/06/2022, 05/05/2022 RSV Patients and Patients Aged 60 years or older Completed 09/06/2023 Pneumococcal Vaccine: 50+ Years Completed 12/20/2023 COVID-19 Vaccine Completed 08/04/2024, , 09/15/2022, Additional history exists Hepatitis A Vaccines Completed 07/26/2025, 12/20/19 24 HIB Vaccines Aged Out No longer eligi ble based on patient's age to complete this topic HPV Vaccines Aged Out No longer eligi ble based on patient's age to complete this topic IPV Vaccines Aged Out No longer eligi ble based on patient's age to complete this topic Meningococcal B Vaccine Aged Out No l onger eligible based on patient's age to complete this topic Meningococcal Vaccine Aged Out No irina melvi eligible based on patient's age to complete this topic RSV under 20 months Aged Out No longe r eligible based on patient's age to complete this topic Rotavirus Vaccines Aged Out No longer eligible based on patient's age to complete this topic Procedures Procedure Name Priority Date/Time Associated Diagnosis Comments LIPID PANEL, STANDARD Routine 07/26/2025 11:18 AM EDT Hypertriglyceridemia HEPATIC FUNCTION PANEL Routine 07/26/2025 11:18 AM EDT Transaminitis TSH W/REFLEX TO FT4 Routine 07/26/2025 1 1:18 AM EDT Abnormal TSH Subclinical hypothyroidism T4, FREE Routine 07/26/2025 11:18 AM EDT Abnormal TSH Subclinical hypothyroidism XR HIP 2 OR 3 VIEWS LEFT Routine 05/15/2025 11:31 AM EDT Left hip pain T4, FREE Routine 05/14/2025 12:00 AM EDT VITAMIN D,25-OH,TOTAL,IA Routine 05/14/2025 12:00 AM EDT Vitamin D deficiency LIPID PANEL, STANDARD Routine 05/14/2025 12:00 AM EDT Hypertriglyceridemia TSH W/REFLEX TO FT4 Routine 05/14/2025 1 2:00 AM EDT Hypertriglyceridemia COMPREHENSIVE METABOLIC PANEL Routine 05/14/2025 12:00 AM EDT Hypertriglyceridemia CBC WITH AUTO DIFFERENTIAL Routine 05/14/2025 12:00 AM EDT Hypertriglyceridemia HM MAMMOGRAPHY Routine 02/16/2025 3:21 PM EDT HM COLONOSCOPY Routine 09/03/2023 HPV GENOTYPES 16,18/45 Routine 02/16/2023 2:42 PM EDT IMAGE-GUIDED PAP W/AGE BASED SCR PROTOCOLS Routine 02/16/2023 2:42 PM EDT High risk HPV infection ZZZ HISTORICAL HEPATITIS C AB W/REFL TO HCV RNA, QN, PCR Routine 01/14/2022 9:17 AM EST HIV 1/2 ANTIGEN/ANTIBODY, FOURTH GENERATION W/RFL Routine 01/14/2022 9:17 AM EST from Last 3 Months or Most Recently Relevant to Health Maintenance Results * (ABNORMAL) TSH with Reflex to Free T4 (07/26/2025 11:18 AM EDT) Only the most recent of2 resultswithin the time period is included. TSH reflex Free T4 4.61(H) 0.32 - 4.0 uIU/mL [facility] Blood 07/26/2025 11:1 8 AM EDT 07/26/2025 2:14 PM EDT Cecilia Huggins MD LAB BLOOD ORDERABLES Final Re sult Performing Organization Address [facility] Co de Phone Number [facility] [address] [place] [phone] * T4, Free (07/26/2025 11:18 AM EDT) Only the most recent of2 resultswithin the time period is included. Free T4 (Free Thyroxine) 0.89 0.71 - 1.85 ng/dL [facility] Blood Venous blood specimen / Unknown 07/26/2025 11:18 AM EDT 07/26/2025 2:14 PM EDT Cecilia Huggins MD LAB BLOOD ORDERABLES Final Re sult Performing Organization Address [facility]/ZIP Co de Phone Number [facility] [address] [place] [phone] * (ABNORMAL) Hepatic Function Panel (07/26/2025 11:18 AM EDT) Bilirubin, Total 0.4 0.0 - 1.0 mg/dL [facility] Bilirubin, Direct 0.1 0.0 - 0.5 mg/dL [facility] Aspartate Amino Transferase 32(H) 5 - 31 U/L [facility] Alanine Aminotransferase 26 0 - 31 U/L [facility] Total Protein 7.1 6.5 - 8.0 g/dL [facility] Albumin Level 4.6 3.5 - 5.0 g/dL [facility] Alkaline Phosphatase 68 39 - 117 U/L [facility] Blood Venous blood specimen / Unknown 07/26/2025 11:18 AM EDT 07/26/2025 2:14 PM EDT us Cecilia Huggins MD LAB BLOOD ORDERABLES Final Re sult Performing Organization Address City/[facility]/ZIP Co de Phone Number [facility] [address] [place] [phone] [phone] * (ABNORMAL) Lipid Panel, Standard (07/26/2025 11:18 AM EDT) Only the most recent of2 resultswithin the time period is included. Triglycerides 244(H) <150 mg/dL [facility] Comment:Desirable Triglyceri de: less than 150 mg/dLBorderline High Triglyceride 150-199 mg/dLHigh Triglyceride: 200-499 mg/dLVery High Triglyceride: greater than or equal to 5OO mg/dL Cholesterol 125 <200 mg/dL [facility] Comment:Desirable Cholestero l: less than 200 mg/dLBorderline High Cholesterol: 200-239 mg/dLHigh Cholesterol: greater than 239 mg/dL LDL Cholesterol Calculated 35 <100 mg/dL [facility] Comment:Desirable LDL: less than 100 mg/dLNear Optimal/Above Optimal LDL: 110- 129 mg/dLBorderline High LDL: 130-159 mg/dLHigh LDL: 160-189 mg/dLVery High LDL: greater than or equal to 190 mg/dL HDL Cholesterol 42 >40 mg/dL [facility] Comment:Desirable HDL: great er than 40 mg/dL Note: This HDL assay may give artificially low results in patients with liver disease. Blood Venous blood specimen / Unknown 07/26/2025 11:18 AM EDT 07/26/2025 2:14 PM EDT us Cecilia Huggins MD LAB BLOOD ORDERABLES Final Re sult [facility] [address] [place] [phone] [phone] * XR Hip 2 or 3 Views Left (05/15/2025 11:31 AM EDT) Anatomical Region Laterality Modality Lower Extremities, Hip Left Radiograp hic Imaging 05/15/2025 11:3 1 AM EDT Narrative 05/15/2025 11:32 AM EDT [facility] [address] [place] [address] [place] [address] XRay Report Signed Patient: Jennifer Thapa MR#: [id number] 6 : 1965 Acct:[id number] Age/Sex: 60 / F ADM Date: 05/14/25 Loc: HO.HMGCX Attending Dr: Cecilia Huggins MD Ordering Physician: Cecilia Huggins MD Date of Service: 05/14/25 Procedure(s): XR hip LT min 2V Accession Number(s): [id number] cc: Cecilia Huggins MD CLINICAL HISTORY: 60 yo F with left hip pain, + throcanteric tenderness[facility] of the left hip Comparison: None provided Findings: No acute fracture or dislocation. Moderate degenerative change of the left femoral-acetabular joint. The soft tissues are unremarkable. IMPRESSION: No acute findings. Moderate degenerative changes. This document has been electronically signed by: Sp Esquivel MD on 05/15/2025 11:31:04 Dictated By: Sp Esquivel MD Signed By: <Electronically signed by Sp Esquivel MD in OV> 05/15/25 1131 DD/ 1131 TD/TT: 05/15/25 1131 Sieve Repairer: Procedure Note Donotuseinterpreter, Image - 05/15/2025 [facility] [address] [place] [address] [place] [address] XRay Report Signed Patient: Jennifer Thapa JMR#: [id number] 6 : 1965Acct:[id number] Age/Sex: 60 / FADM Date: 05/14/25 Loc: HO.HMGCX Attending Dr: Cecilia Huggins MD Ordering Physician: Cecilia Huggins MD Date of Service: 05/14/25 Procedure(s): XR hip LT min 2V Accession Number(s): [id number] cc: Cecilia Huggins MD CLINICAL HISTORY: 60 yo F with left hip pain, + throcanteric tenderness,send to [facility] [place] [facility] Two views of the left hip Comparison: None provided Findings: No acute fracture or dislocation. Moderate degenerative change of the left femoral-acetabular joint. The soft tissues are unremarkable. IMPRESSION: No acute findings. Moderate degenerative changes. This document has been electronically signed by: Sp Esquivel MD on 05/15/2025 11:31:04 Dictated By: Sp Esquivel MD Signed By: <Electronically signed by Sp Esquivel MD in OV> 05/15/25 1131 DD/ 1131 TD/TT: 05/15/25 1131 Sieve Repairer: Cecilia Huggins MD IM XR PROCEDURES Final Resul t * Vitamin D, 25-Hydroxy, Total, Immunoassay (05/14/2025 12:00 AM EDT) Vitamin D 25-OH Total 90.7 >30 ng/mL [facility] Comment: Health Based Reference Values*< 20 ng/mL Elcnaovmj79-57 ng/mL Insufficient> 30 ng/mL Sufficient*Dominic BAIRD. N Engl J Med. 2007;357:266-280There is no well-established upper level of normal vitamin Dlevels. Some laboratories use 50 ng/mL as an upper limit ofnormal. However, toxicity is patient-dependent and may occurat any level. Careful correlation with the patient'spresentation is necessary and, if there is concern forvitamin D toxicity, treatment should be consideredirrespective of the serum level.Care must be taken in interpreting Vitamin D results fromdifferent laboratories and methodologies. Published datademonstrated that results from patients undergoinghemodialysis may show a negative bias when tested withvarious automated 25-OH vitamin D assays when compared toLC-MS/MS.When testing samples from patients whose predominant form ofVitamin D is Vitamin D2, such as patients receiving VitaminD2 supplementation, results that are subtherapeutic shouldbe confirmed with another method such as LC-MS/MS. Blood Venous blood specimen / Unknown 05/14/2025 05/14/2025 us Cecilia Huggins MD LAB BLOOD ORDERABLES Final Re sult [facility] [address] [place] [phone] [phone] * (ABNORMAL) CBC auto differential (05/14/2025 12:00 AM EDT) White Blood Count 6.1 4.8 - 10.8 X10*3/uL [facility] Red Blood Count 3.86(L) 4.20 - 5.50 X10*6/uL [facility] Hemoglobin 12.0 12.0 - 16.0 g/dl [facility] Hematocrit 36.9(L) 37.0 - 47.0 % [facility] Mean Corpuscular Volume 95.6 80.0 - 98.0 fL [facility] Mean Corpuscular Hemoglobin 31.1 27.0 - 33.0 pg [facility] Mean Corpuscular HGB Conc 32.5 31.0 - 35.0 g/dl [facility] Red Cell Distribution Width 12.8 11.0 - 16.0 % [facility] Platelet Count 218 160 - 400 X10*3/uL [facility] Mean Platelet Volume 12.6(H) 9.4 - 12.3 fL [facility] Neutrophils Percent Auto 49.0 45 - 73 % [facility] Imm Gran Pct Auto 0.3 0.0 - 0.4 % [facility] Lymphocytes Percent Auto 34.5 20 - 40 % [facility] Monocytes Percent Auto 10.8 2 - 11 % [facility] Eosinophils Percent Auto 4.9(H) 0 - 4 % [facility] Basophils Percent Auto 0.5 0 - 2 % [facility] NRBC Pct Auto 0.0 0.0 - 0.2 /100WBC [facility] Neutrophils Absolute Auto 3.0 2.0 - 8.3 x10*3/uL [facility] Imm Gran Abs Auto 0.02 0.00 - 0.03 X10*3/uL [facility] Lymphocytes Absolute Auto 2.1 1.2 - 4.9 X10*3/uL [facility] Monocytes Absolute Auto 0.7 0.1 - 1.2 X10*3/uL [facility] Eosinophils Absolute Auto 0.3 0.0 - 0.4 X10*3/uL [facility] Basophils Absolute Auto 0.0 0.0 - 0.2 X10*3/uL [facility] NRBC Abs Auto 0.000 0.0 - 0.012 X10*3/uL [facility] Blood Venous blood specimen / Unknown 05/14/2025 05/14/2025 us Cecilia Huggins MD LAB BLOOD ORDERABLES Final Re sult [facility] [address] [place] [phone] * (ABNORMAL) Comprehensive Metabolic Panel (05/14/2025 12:00 AM EDT) Sodium 145 135 - 145 mmol/L [facility] Potassium 5.0 3.3 - 5.1 mmol/L [facility] Chloride 111(H) 96 - 108 mmol/L [facility] Carbon Dioxide 28 22 - 29 mmol/L [facility] Anion Gap 11(L) 12 - 20 [facility] Urea Nitrogen (BUN) 24(H) 9 - 16 mg/dL [facility] Creatinine, Serum 1.03 0.5 - 1.4 mg/dL [facility] Estimated Glomerular Filt Rate 54 [facility] Comment:Chronic Kidney Disea se: Estimated GFR < 60 mL/min/[id number] Kidney Disease: Estimated GFR < 15 mL/min/1.73m2 Glucose 89 60 - 115 mg/dL [facility] Calcium 9.5 8.4 - 10.2 mg/dL [facility] Bilirubin, Total 0.3 0.0 - 1.0 mg/dL [facility] Aspartate Amino Transferase 32(H) 5 - 31 U/L [facility] Alanine Aminotransferase 25 0 - 31 U/L [facility] Total Protein 6.9 6.5 - 8.0 g/dL [facility] Albumin Level 4.6 3.5 - 5.0 g/dL [facility] Alkaline Phosphatase 45 39 - 117 U/L [facility] Blood Venous blood specimen / Unknown 05/14/2025 05/14/2025 Cecilia Huggins MD LAB BLOOD ORDERABLES Final Re sult [facility] [address] [place] [phone] * Mammography (02/16/2025 3:21 PM EDT) Anatomical Region Laterality Modality Other Historical Provider HEALTH MAINTENANCE Final Result * (ABNORMAL) Colonoscopy (09/03/2023) Colonoscopy Abnormal(A ) Normal Narrative Cecilia Huggins MD - 09/03/2023 TA > 1 cm, hyperplastic polyps, following USNVTF guidelines will need rpt in 3 yrs due to size of TA Historical Provider HEALTH MAINTENANCE Final Result * (ABNORMAL) Image-Guided Pap with Age-Based Screening Protocols (02/16/2023 2:42 PM EDT) Comment Access Network[facility] Comment: This order for age-based cervical cancer and STI screening follows ACOG guidelines(PB 168, 140, TZN485). See individual assays for performing site location. Clinical Information: None given [facility] LMP: NONE GIVEN [facility] Prev. PAP: NONE GIVEN [facility] Prev. BX: NONE GIVEN [facility] SOURCE: None given [facility] Statement Of Adequacy: [facility] Comment: Satisfactory for evaluation. Endocervical/transformation zone component present. Interpretation/ Result: Negative for intraepithelial lesion or malignancy. [facility] COMMENT: This Pap test has been evaluated with computer assisted technology. [facility] Cytotechnologis t: [facility] Comment: KR, CT(ASCP) CT screening location: [place] [address] Review Cytotechnologis t: [facility] Comment: JNA, CT(ASCP) CT screening location: [place] [address] (Always Message) [facility] Comment: EXPLANATORY NOTE: The Pap is a screening test for cervical cancer. It is not a diagnostic test and is subject to false negative and false positive results. It is most reliable when a satisfactory sample, regularly obtained, is submitted with relevant clinical findings and history, and when the Pap result is evaluated along with historic and current clinical information. HPV nRNA E6/E7 Detected(A) Not Detected [facility] Comment: Methodology: [employer]-Mediated Amplification This assay detects E6/E7 viral messenger RNA (mRNA) from 14 high-risk HPV types (16,18,31,33,35,39,45,51,52,56,58,59,66,68). Cervical sources are required for HPV testing. If a vaginal source from a patient who has had a total hysterectomy with removal of cervix was submitted, please contact the testing laboratory for alternative testing options. For additional information, please refer to http://education.[employer]edo/faq/JRD898q2 (This link if provided for information/ educational purposes only.) 02/16/2023 2:42 PM EDT 02/17/2023 5:14 AM EDT us Cecilia Huggins MD LAB BLOOD ORDERABLES Final Re sult [facility] [address], [place] [address] [facility] [address] [place] [address] * HPV Genotypes 16,18/45 (02/16/2023 2:42 PM EDT) Pathologist [facility] HPV 16 RNA NOT DETECTED NOT DETECTED [facility] HPV 18/45 RNA NOT DETECTED NOT DETECTED [facility] Comment: Methodology: Park Naturalist Mediated Amplification Cervical sources are required for HPV testing. If a vaginal source from a patient who has had a total hysterectomy with removal of cervix was submitted, please contact the testing laboratory for alternative testing options. 02/16/2023 2:42 PM EDT 02/17/2023 5:14 AM EDT Cecilia Huggins MD LAB CYTOLOGY ORDERABLES Final Result Performing Organization Address [facility] Co de Phone Number [facility] [address] [address] [facility] [address] [place] [address] * HEPATITIS C AB W/REFL TO HCV RNA, QN, PCR (01/14/2022 9:17 AM EST) Pathologist [facility] HEPATITIS C ANTIBODY NON-REACT [facility] NON-REACT [facility] INDEX 0.02 <1.00 [facility] Comment: HCV antibody was non-reactive. There is no laboratory evidence of HCV infection. In most cases, no further action is required. However, if recent HCV exposure is suspected, a test for HCV RNA (test code 02953) is suggested. For additional information please refer to http://education.[employer].Knowta/faq/CVU10u8 (This link is being provided for informational/ educational purposes only.) 01/14/2022 9:17 AM EST Cecilia Huggins MD HISTORICAL/NON ORDERABLE LABS Final Result Performing Organization Address City/[facility]/ZIP Co de Phone Number [facility] [address] * HIV 1/2 ANTIGEN/ANTIBODY,FOURTH GENERATION W/RFL (01/14/2022 9:17 AM EST) HIV-1/2 ANTIGEN AND ANTIBODIES, 4TH GENERATION W/ REFLEX NON-REACT BIANCA NON-REACT BIANCA [facility] Comment: HIV-1 antigen and HIV-1/HIV-2 antibodies were not detected. There is no laboratory evidence of HIV infection. PLEASE NOTE: This information has been disclosed to you from records whose confidentiality may be protected by state law. If your state requires such protection, then the state law prohibits you from making any further disclosure of the information without the specific written consent of the person to whom it pertains, or as otherwise permitted by law. A general authorization for the release of medical or other information is NOT sufficient for this purpose. For additional information please refer to http://education.[employer]/faq/PYJ296 (This link is being provided for informational/ educational purposes only.) The performance of this assay has not been clinically validated in patients less than 2 years old. 01/14/2022 9:17 AM EST us Cecilia Huggins MD LAB BLOOD ORDERABLES Final Re sult [facility] [address] from Last 3 Months or Most Recently Relevant to Health Maintenance Insurance MEDICARE FORMERLY [facility], [facility] Care Teams Data Deliverables Manager Relationship Specialty Start Date End Date Cecilia Huggins MD [address] [place] [id number] PCP - General Family Medicine 01/01/22
--- OUTSIDE RECORDS SUMMARY | 2025-07-26 15:34 | XMS_ITS | Encounter Summary ---
Author Organization [employer] Address [address] [facility] 7t [place] [address] Care Team Providers Care Flaker Tender Name Role Phone Cecilia Huggins MD Primary Care Provider [phone] Encounter Details Date Type Department Care Team (Latest Contact Info) Description 07/26/2025 Travel Social History Tobacco Use Types Packs/Day Years [...] Description 07/30/2025 9:00 AM EDT Procedure Visit [facility] [address] [place] [address] Cecilia Huggins MD [address] [place] [address] documented as of this encounter Visit Diagnoses Not on filedocumented in this encounter Additional Health Concerns Assessment Noted Time PHQ-9 Depression Total Score: 0 05/11/20 25 1:13 PM EDT documented as of this encounter Care Teams Flaker Tender Relationship Specialty Start Date End Date Cecilia Huggins MD [address] [place] [address] PCP - General Family Medicine 01/01/22 documented as of this encounter
--- OUTSIDE RECORDS SUMMARY | 2025-07-26 15:34 | XMS_ITS | Encounter Summary ---
Author Organization [employer] Address [address] [facility] 7t [place] [address] Care Team Providers Care Menswear Salesperson Name Role Phone Cecilia Huggins MD Primary Care Provider [phone] Encounter Details Date Type Department Care Team (Late Contact Info) Description 06/03/[address] [facility] [address] [place] [address] Eloisa Steele MD [address] [place] [address] Social History Tobacco Use Types Packs/Day Years [...] Encounters Date Type Department Care Team (Late Contact Info) Description 07/30/2025 9:00 AM EDT Procedure Visit [facility] MED & PEDS [address] [place], [place] [phone] Cecilia Huggins MD [address] [place], [place] [phone] documented as of this encounter Procedures Procedure Name Priority Date/Time Associated Diagnosis Comments COLPOSCOPY Routine 06/02/2023 12:00 AM EDT documented in this encounter Results * Colposcopy (06/02/2023 12:00 AM EDT) us Yonas Dowling MD IN CLINIC/BEDSIDE ORDERABLES Fin al Result documented in this encounter Visit Diagnoses Not on filedocumented in this encounter Additional Health Concerns Assessment Noted Time PHQ-9 Depression Total Score: 17 023 2:38 PM EST documented as of this encounter Care Teams Menswear Salesperson Relationship Specialty Start Date End Date Cecilia Huggins MD [address] [place] [address] PCP - General Family Medicine 01/01/22 documented as of this encounter
[2025-07-27 06:54] LABS: Follicle Stimulating Hormone 120.4 mIU/mL
[2025-08-17 09:37] LABS: Estradiol Ultra Sensitive <2 pg/mL
== END 2025-07-26 11:15 | disposition home or self-care (01) ==
LOC: HO.CHCLDS 11:14
PROVIDERS: Visit Provider Family Medicine
DX: E78.1 Pure hyperglyceridemia (principal); R74.01 Elevation of levels of liver transaminase levels; R61 Generalized hyperhidrosis; R79.89 Other specified abnormal findings of blood chemistry; E03.8 Other specified hypothyroidism
CPT/HCPCS: 36415; 80061; 80076; 82670; 83001; 84439; 84443

== ENCOUNTER 2025-07-30 15:06 | Outpatient (REF) | payer MEDICARE, MEDICAID, SELFPAY ==
--- OUTSIDE RECORDS SUMMARY | 2025-07-26 10:45 | XMS_ITS | Encounter Summary ---
Author Organization [employer] Address [address] [place] [address] [address] [place] [address] Care Team Providers Care Dials Inspector Name Role Phone Cecilia Huggins MD Primary Care Provider [phone] Reason for Referral * Consultation (Routine) - Authorized Specialty Diagnoses / Procedures Referred By Conttim t Referred To Contact General Surgery Diagnoses External hemorrhoid, bleeding Cecilia Huggins MD [address] [place] [address] Phone: tel: fax: [facility] [address] [place] [address] Phone: tel: fax: Referral ID Status Reason Start Date Expiration Date Visits Requested Visits Authorized [id number] Authorized Specialty Services Required 07/26/2025 07/26/2026 1 1 Reason for Visit * Reason Comments Hemorrhoids Encounter Details Date Type Department Care Team ([facility] st Contact Info) Description 07/26/2025 10:45 AM EDT Office Visit [facility] PEDS [address] [place], [place] [phone] Cecilia Huggins MD [address] [place], [place] [phone] External hemorrhoid, bleeding (Primary Dx); Unexplained night [...] reduce inflammation - Refer to surgeon at [facility] for potential hemorrhoid removal - Prescribe [...] by the specialist. Recent mammogram performed at [facility]. Patient inquired about flu and COVID-19 vaccinations. Plan: - Schedule Pap smear for Wednesday at 9 AM - Retrieve mammogram results from [facility] - Advise patient to get flu and COVID-19 vaccinations at local pharmacy ([facility] or [employer]) when available at the end of July [...] 11:18 AM EDT) Triglycerides 244(H) <150 mg/dL [facility] Comment:Desirable Triglyceri de: less than 150 mg/dLBorderline High Triglyceride 150-199 mg/dLHigh Triglyceride: 200-499 mg/dLVery High Triglyceride: greater than or equal to 5OO mg/dL Cholesterol 125 <200 mg/dL [facility] Comment:Desirable Cholestero l: less than 200 mg/dLBorderline High Cholesterol: 200-239 mg/dLHigh Cholesterol: greater than 239 mg/dL LDL Cholesterol Calculated 35 <100 mg/dL [facility] Comment:Desirable LDL: less than 100 mg/dLNear Optimal/Above Optimal LDL: 110- 129 mg/dLBorderline High LDL: 130-159 mg/dLHigh LDL: 160-189 mg/dLVery High LDL: greater than or equal to 190 mg/dL HDL Cholesterol 42 >40 mg/dL [facility] Comment:Desirable HDL: great er than 40 mg/dL Note: This HDL assay may give artificially low results in patients with liver disease. Blood Venous blood specimen / Unknown 07/26/2025 11:18 AM EDT 07/26/2025 2:14 PM EDT us Cecilia Huggins MD LAB BLOOD ORDERABLES Final Re sult [facility] [address] [place] [address] [phone] documented in this encounter Visit Diagnoses Diagnosis External hemorrhoid, bleeding- Primary Unexplained night sweats Encounter for immunization Hypertriglyceridemia Pure hyperglyceridemia documented in this encounter Additional Health Concerns Assessment Noted Time PHQ-9 Depression Total Score: 0 05/11/20 25 1:13 PM EDT documented as of this encounter Care Teams Dials Inspector Relationship Specialty Start Date End Date Cecilia Huggins MD [address] [place] [address] PCP - General Family Medicine 01/01/22 documented as of this encounter
--- OUTSIDE RECORDS SUMMARY | 2025-07-30 09:00 | XMS_ITS | Encounter Summary ---
Author Organization [employer] Address [address] [facility] 7t [place] [address] Care Team Providers Care Director Of Agriculture Name Role Phone Cecilia Huggins MD Primary Care Provider [phone] Reason for Visit * Reason Comments followup Coloposcopy Encounter Details Date Type Department Care Team (Latest Contact Info) Description 07/30/2025 9:00 AM EDT Procedure Visit [facility] [address] [place], [place] [phone] Cecilia Huggins MD [address] [place] [address] History of colposcopy (Primary Dx); High risk [...] done in 2023 but didn't followup with AVIATION ORDNANCE OFFICER. Review of Systems Constitutional: Negative for appetite [...] Exam Vitals reviewed. Exam conducted with a satellite communications engineer present. Constitutional: General: She is not in [...] documented as of this encounter Care Teams Director Of Agriculture Relationship Specialty Start Date End Date Cecilia Huggins MD [address] [place] [address] PCP - General Family Medicine 01/01/22 documented as of this encounter
--- OUTSIDE RECORDS SUMMARY | 2025-07-30 20:46 | XMS_ITS | Encounter Summary ---
Author Organization [employer] Address [address] [facility] [address]t [place] [address] Care Team Providers Care Civil Engineering Professor Name Role Phone Cecilia Huggins MD Primary Care Provider [phone] Encounter Details Date Type Department Care Team (Latest Contact Info) Description 07/30/2025 Travel Social History Tobacco Use Types Packs/Day [...] as of this encounter Plan of Treatment Not on file documented as of this encounter Visit Diagnoses Not on filedocumented in this encounter Additional Health Concerns Assessment Noted Time PHQ-9 Depression Total Score: 0 05/11/20 25 1:13 PM EDT documented as of this encounter Care Teams Civil Engineering Professor Relationship Specialty Start Date End Date Cecilia Huggins MD [address] [place] [address] PCP - General Family Medicine 01/01/22 documented as of this encounter
--- OUTSIDE RECORDS SUMMARY | 2025-07-30 20:46 | XMS_ITS | Encounter Summary ---
Author Organization [employer] Address [address] [facility] [address]t [place] [address] Care Team Providers Care Real Estate Agency Principal Name Role Phone Cecilia Huggins MD Primary Care Provider [phone] Reason for Visit * Reason Onset Date Comments Results 07/27/2025 Encounter Details Date Type Department Care Team ([facility] Contact Info) Description 07/27/2025 Results Follow-Up [facility] MED & PEDS [address] [place], [place] [phone] Cecilia Huggins MD [address] [place] [address] FSH, Lipid Panel, Standard Social History Tobacco Use Types Packs/Day Years [...] encounter Miscellaneous Notes * Telephone Encounter - Miroslava Courtney RN - 07/27/2025 12:18 PM EDT TC placed to pt to inform and advise of below PCP message. Advised pt estradiol testing pended. Advised pt per PCP, triglycerides are elevated and at this moment will need to restart medication fenofibrate (Triglide) 160 MG tablet. Pt verbalized understanding and reports they will pick the medication up on Wednesday. Pt reports they were at the pharmacy yesterday and they asked if the pt wanted the medication. Pt declined at that time as they were not aware they were to restart on fenofibrate (Triglide) 160 MG tablet. Pt requesting RN to call pharmacy to ensure they hold medication. TC placed toC pharmacy regarding pt. Pharmacy staff [place] states the medication is on hold so pt is able to get medication when they need it. ----- Message from Cecilia Huggins MD sent at 07/27/2025 10:32 AM EDT ----- Julieta Stroud Team! Can you please call Jennifer Thapa and inform about results? Pending estradiol testing. Of note, patient triglycerides are elevated, at this moment will need torestart med (fenofibrate). Thanks! Cecilia ----- Message ----- From: Interface, Lab Results In Sent: 07/26/2025 3:01 PM EDT To: Cecilia Huggins MD documented in this encounter Plan of Treatment Not on file documented as of this encounter Visit Diagnoses Not on filedocumented in this encounter Additional Health Concerns Assessment Noted Time PHQ-9 Depression Total Score: 0 05/11/20 25 1:13 PM EDT documented as of this encounter Care Teams Real Estate Agency Principal Relationship Specialty Start Date End Date Cecilia Huggins MD [address] [place] [address] PCP - General Family Medicine 01/01/22 documented as of this encounter
--- OUTSIDE RECORDS SUMMARY | 2025-07-30 20:46 | XMS_ITS | Encounter Summary ---
Author Organization [employer] Address [address] [place] [address] [address] [place] [address] Care Team Providers Care Test Development Engineer Name Role Phone Cecilia Huggins MD Primary Care Provider [phone] Reason for Visit * Reason Onset Date Comments Appointment Request 07/26/2023 Encounter Details Date Type Department Care Team ([facility] st Contact Info) Description 07/26/2023 Telephone [facility] CHC MED & PEDS [address] [place], [place] [phone] Cecilia Huggins MD [address] [place] [address] Appointment Request Social History Tobacco Use Types [...] tests including liver and A1C. Please call [phone] documented in this encounter Plan of Treatment Not on file documented as of this encounter Visit Diagnoses Not on filedocumented in this encounter Additional Health Concerns Assessment Noted Time PHQ-9 Depression Total Score: 17 023 2:38 PM EST documented as of this encounter Care Teams Test Development Engineer Relationship Specialty Start Date End Date Cecilia Huggins MD [address] [place] [address] PCP - General Family Medicine 01/01/22 documented as of this encounter
--- OUTSIDE RECORDS SUMMARY | 2025-07-30 20:46 | XMS_ITS | Clinical Summary ---
Author Organization [employer] Address [address] [facility] 7t [place] [address] Care Team Providers Care Waste Water Worker Name Role Phone Cecilia Huggins MD Primary Care Provider [phone] Allergies No known active allergies Medications aspirin [...] Active Problems Problem Noted Date Diagnosed Date High risk human papilloma virus (HPV) infection of cervix 07/30/2025 History of colposcopy 07/30/2025 External hemorrhoid, bleeding 07/26/2025 Unexplained night sweats [...] 10:45 AM EST): Will send CXR and ward helper, active smoker of 40 PPD. Consider sending [...] Encounters Date Type Department Care Team Description 07/30/2025 9:00 AM EDT Procedure Visit [facility] [address] [place] [address] Cecilia Huggins MD History of colposcopy (Primary Dx); High risk human papilloma virus (HPV) infection of cervix; Abnormal TSH; Subacute thyroiditis 07/30/2025 Travel 07/27/2025 Results Follow-Up [facility] [address] [place] [address] Cecilia Huggins MD FSH, Lipid Panel, Standard 07/26/2025 10:45 AM EDT Office Visit [facility] [address] [place] [address] Cecilia Huggins MD External hemorrhoid, bleeding (Primary Dx); Unexplained night sweats; Encounter for immunization; Hypertriglyceridemia 07/26/2025 Orders Only [facility] [address] [place] [address] Argenis Mcintosh MD 07/26/2025 Travel 07/25/2025 Telephone [facility] [address] [place] [address] Cecilia Huggins MD Nurse Triage 07/17/2025 Refill [facility] [address] [place] [address] Mary Lester MD Mixed hyperlipidemia 07/10/2025 Travel 07/10/2025 Telephone [facility] [address] [place] [address] Cecilia Huggins MD Nurse Triage 05/21/2025 Telephone [facility] [address] [place] [address] Cecilia Huggins MD Referral 05/15/2025 Results Follow-Up [facility] [address] [place] [address] Cecilia Huggins MD XR Hip 2 or 3 Views Left, CBC auto differential, Comprehensive Metabolic Panel, Additional followed-up results: 3 05/11/2025 1:00 PM EDT Office Visit [facility] [address] [place] [address] Cecilia Huggins MD Hypertriglyceridemia (Primary Dx); Vitamin D deficiency; Left hip pain; Primary hypertension 05/11/2025 Travel 05/09/2025 Telephone [facility] [address] [place] [address] Cecilia Huggins MD chart prep 05/04/2025 Patient Outreach [facility] [address] [place], [place] [phone] Cecilia Huggins MD Pre-visit Planning (SDOH screening [...] Mass Index 25.16 07/30/2025 9:07 AM EDT Plan of Treatment Health Maintenance Due Date Last Done Comments [...] 05/11/2026 05/11/2025 Depression Screening 05/11/2026 05/11/2025, 05/11/20 25 Disability Screening 05/11/2026 05/11/2025 Tobacco Screening 07/30/2026 07/30/2025 Colonoscopy 09/03/2026 09/03/2023 Colorectal Cancer Screening 09/03/2026 Lipid Panel 07/26/2030 07/26/2025, 04/17, 07/28/2024, Additional history exists DTaP/Tdap/Td [...] STANDARD Routine 07/26/2025 11:18 AM EDT Hypertriglyceridemia FSH Routine 07/26/2025 11:18 AM EDT Unexplained night sweats HEPATIC FUNCTION PANEL Routine 07/26/2025 11:18 AM [...] Free T4 4.61(H) 0.32 - 4.0 uIU/mL [facility] Blood 07/26/2025 11:1 8 AM EDT 07/26/2025 2:14 PM EDT Cecilia Huggins MD LAB BLOOD ORDERABLES Final Re sult Performing Organization Address City/[facility]/ZIP Co de Phone Number [facility] [address] [place] [address] [phone] * T4, Free (07/26/2025 11:18 AM EDT) Only the most recent of2 resultswithin the time period is included. Free T4 (Free Thyroxine) 0.89 0.71 - 1.85 ng/dL [facility] Blood Venous blood specimen / Unknown 07/26/2025 11:18 AM EDT 07/26/2025 2:14 PM EDT Cecilia Huggins MD LAB BLOOD ORDERABLES Final Re sult Performing Organization Address City/[facility]/ZIP Co de Phone Number [facility] [address] [place] [phone] * (ABNORMAL) Hepatic Function Panel (07/26/2025 11:18 AM EDT) Bilirubin, Total 0.4 0.0 - 1.0 mg/dL [facility] Bilirubin, Direct 0.1 0.0 - 0.5 mg/dL [facility] Aspartate Amino Transferase 32(H) 5 - 31 U/L [facility] Alanine Aminotransferase 26 0 - 31 U/L [facility] Total Protein 7.1 6.5 - 8.0 g/dL [facility] Albumin Level 4.6 3.5 - 5.0 g/dL [facility] Alkaline Phosphatase 68 39 - 117 U/L [facility] Blood Venous blood specimen / Unknown 07/26/2025 11:18 AM EDT 07/26/2025 2:14 PM EDT us Cecilia Huggins MD LAB BLOOD ORDERABLES Final Re sult [facility] [address] [place], [place] [phone] * (ABNORMAL) Lipid Panel, Standard (07/26/2025 11:18 AM EDT) Only the most recent of2 resultswithin the time period is included. Pathologist [facility] Triglycerides 244(H) <150 mg/dL [facility] Comment:Desirable Triglyceri de: less than 150 mg/dLBorderline High Triglyceride 150-199 mg/dLHigh Triglyceride: 200-499 mg/dLVery High Triglyceride: greater than or equal to 5OO mg/dL Cholesterol 125 <200 mg/dL [facility] Comment:Desirable Cholestero l: less than 200 mg/dLBorderline High Cholesterol: 200-239 mg/dLHigh Cholesterol: greater than 239 mg/dL LDL Cholesterol Calculated 35 <100 mg/dL [facility] Comment:Desirable LDL: less than 100 mg/dLNear Optimal/Above Optimal LDL: 110- 129 mg/dLBorderline High LDL: 130-159 mg/dLHigh LDL: 160-189 mg/dLVery High LDL: greater than or equal to 190 mg/dL HDL Cholesterol 42 >40 mg/dL [facility] Comment:Desirable HDL: great er than 40 mg/dL Note: This HDL assay may give artificially low results in patients with liver disease. Blood Venous blood specimen / Unknown 07/26/2025 11:18 AM EDT 07/26/2025 2:14 PM EDT us Cecilia Huggins MD LAB BLOOD ORDERABLES Final Re sult [facility] [address] [place] [phone] * XR Hip 2 or 3 Views Left (05/15/2025 11:31 AM EDT) Anatomical Region Laterality Modality Lower Extremities, Hip Left Radiograp hic Imaging 05/15/2025 11:3 1 AM EDT Narrative 05/15/2025 11:32 AM EDT [facility] [place] [address] XRay Report Signed Patient: Jennifer Thapa MR#: [id number] 6 : 1965 Acct:[id number] Age/Sex: 60 / F ADM Date: 05/14/25 Loc: HO.HMGCX Attending Dr: Cecilia Huggins MD Ordering Physician: Cecilia Huggins MD Date of Service: 05/14/25 Procedure(s): XR hip LT min 2V Accession Number(s): [id number] cc: Cecilia Huggins MD CLINICAL HISTORY: 60 yo F with left hip pain, + throcanteric tenderness, send to [facility] Maximus Two views of the left hip Comparison: [...] 05/15/25 1131 DD/ 1131 TD/TT: 05/15/25 1131 Dynamite Packing Machine Feeder: Procedure Note Donotuseinterpreter, Image - 05/15/2025 [facility] [place] [address] XRay Report Signed Patient: Jennifer Thapa JMR#: [id number] 6 : 1965Acct:[id number] Age/Sex: 60 / FADM Date: 05/14/25 Loc: HO.HMGCX Attending Dr: Cecilia Huggins MD Ordering Physician: Cecilia Huggins MD Date of Service: 05/14/25 Procedure(s): XR hip LT min 2V Accession Number(s): [id number] cc: Cecilia Huggins MD CLINICAL HISTORY: 60 yo F with left hip pain, + throcanteric tenderness,send to [facility] Maximus Two views of the left hip Comparison: [...] 05/15/25 1131 DD/ 1131 TD/TT: 05/15/25 1131 Dynamite Packing Machine Feeder: Cecilia Huggins MD IMG XR PROCEDURES Final Resul t * Vitamin D, 25-Hydroxy, Total, Immunoassay (05/14/2025 12:00 AM EDT) Vitamin D 25-OH Total 90.7 >30 ng/mL [facility] Comment: Health Based Reference Values*< 20 ng/mL Kjlqgiumk21-97 ng/mL Insufficient> 30 ng/mL Sufficient*Dominic BAIRD. N [...] MD LAB BLOOD ORDERABLES Final Re sult [facility] [address] [place] [phone] * (ABNORMAL) CBC auto differential (05/14/2025 12:00 AM EDT) White Blood Count 6.1 4.8 - 10.8 X10*3/uL [facility] Red Blood Count 3.86(L) 4.20 - 5.50 X10*6/uL [facility] Hemoglobin 12.0 12.0 - 16.0 g/dl [facility] Hematocrit 36.9(L) 37.0 - 47.0 % [facility] Mean Corpuscular Volume 95.6 80.0 - 98.0 fL [facility] Mean Corpuscular Hemoglobin 31.1 27.0 - 33.0 pg [facility] Mean Corpuscular HGB Conc 32.5 31.0 - 35.0 g/dl [facility] Red Cell Distribution Width 12.8 11.0 - 16.0 % [facility] Platelet Count 218 160 - 400 X10*3/uL [facility] Mean Platelet Volume 12.6(H) 9.4 - 12.3 fL [facility] Neutrophils Percent Auto 49.0 45 - 73 % [facility] Imm Gran Pct Auto 0.3 0.0 - 0.4 % [facility] Lymphocytes Percent Auto 34.5 20 - 40 % [facility] Monocytes Percent Auto 10.8 2 - 11 % [facility] Eosinophils Percent Auto 4.9(H) 0 - 4 % [facility] Basophils Percent Auto 0.5 0 - 2 % [facility] NRBC Pct Auto 0.0 0.0 - 0.2 /100WBC [facility] Neutrophils Absolute Auto 3.0 2.0 - 8.3 x10*3/uL [facility] Imm Gran Abs Auto 0.02 0.00 - 0.03 X10*3/uL [facility] Lymphocytes Absolute Auto 2.1 1.2 - 4.9 X10*3/uL [facility] Monocytes Absolute Auto 0.7 0.1 - 1.2 X10*3/uL [facility] Eosinophils Absolute Auto 0.3 0.0 - 0.4 X10*3/uL [facility] Basophils Absolute Auto 0.0 0.0 - 0.2 X10*3/uL [facility] NRBC Abs Auto 0.000 0.0 - 0.012 X10*3/uL [facility] Blood Venous blood specimen / Unknown 05/14/2025 05/14/2025 us Cecilia Huggins MD LAB BLOOD ORDERABLES Final Re sult [facility] [address] [place] [phone] * (ABNORMAL) Comprehensive Metabolic Panel (05/14/2025 12:00 AM EDT) Sodium 145 135 - 145 mmol/L [facility] Potassium 5.0 3.3 - 5.1 mmol/L [facility] Chloride 111(H) 96 - 108 mmol/L [facility] Carbon Dioxide 28 22 - 29 mmol/L [facility] Anion Gap 11(L) 12 - 20 [facility] Urea Nitrogen (BUN) 24(H) 9 - 16 mg/dL [facility] Creatinine, Serum 1.03 0.5 - 1.4 mg/dL [facility] Estimated Glomerular Filt Rate 54 [facility] Comment:Chronic Kidney Disea se: Estimated GFR < 60 mL/min/1.48l5Jvvubo Kidney Disease: Estimated GFR < 15 mL/min/1.73m2 Glucose 89 60 - 115 mg/dL [facility] Calcium 9.5 8.4 - 10.2 mg/dL [facility] Bilirubin, Total 0.3 0.0 - 1.0 mg/dL [facility] Aspartate Amino Transferase 32(H) 5 - 31 U/L [facility] Alanine Aminotransferase 25 0 - 31 U/L [facility] Total Protein 6.9 6.5 - 8.0 g/dL [facility] Albumin Level 4.6 3.5 - 5.0 g/dL [facility] Alkaline Phosphatase 45 39 - 117 U/L [facility] Blood Venous blood specimen / Unknown 05/14/2025 05/14/2025 Cecilia Huggins MD LAB BLOOD ORDERABLES Final Re sult [facility] [address] [place] [phone] * Mammography (02/16/2025 3:21 PM EDT) Anatomical Region Laterality Modality Other Historical Provider HEALTH MAINTENANCE Final Result * (ABNORMAL) Hm Colonoscopy (09/03/2023) Colonoscopy Abnormal(A ) Normal Narrative Cecilia Huggins MD - 09/03/2023 TA > 1 cm, hyperplastic polyps, following USMSTF guidelines will need rpt in 3 yrs due to size of TA Historical Provider HEALTH MAINTENANCE Final Result * (ABNORMAL) Image-Guided Pap with Age-Based Screening Protocols (02/16/2023 2:42 PM EDT) Comment [employer] Comment: This order for age-based cervical cancer and STI screening follows ACOG guidelines(PB 168, 140, CBZ754). See individual assays for performing site location. Clinical Information: None given [employer] [facility] LMP: NONE GIVEN [facility] Prev. PAP: NONE GIVEN [employer] [facility] Prev. BX: NONE GIVEN [employer] [facility] SOURCE: None given [employer] Statement Of Adequacy: [employer] Comment: Satisfactory for evaluation. Endocervical/transformation zone component present. Interpretation/ Result: Negative for intraepithelial lesion or malignancy. [facility] COMMENT: This Pap test has been evaluated with computer assisted technology. [facility] Cytotechnologis t: [employer] Comment: KR, CT(ASCP) CT screening location: [place] [address] Review Cytotechnologis t: [employer] [facility] Comment: JNA, CT(ASCP) CT screening location: [place] [address] (Always Message) [employer] Comment: EXPLANATORY NOTE: The Pap is a [...] information. HPV nRNA E6/E7 Detected(A) Not Detected [employer] Comment: Methodology: Piano Mover-Mediated Amplification This assay detects E6/E7 viral messenger RNA (mRNA) from 14 high-risk HPV types (16,18,31,33,35,39,45,51,52,56,58,59,66,68). Cervical sources are required for HPV testing. If a vaginal source from a patient who has had a total hysterectomy with removal of cervix was submitted, please contact the testing laboratory for alternative testing options. For additional information, please refer to http://education.[employer]/faq/WXU983p9 (This link if provided for information/ educational purposes only.) 02/16/2023 2:42 PM EDT 02/17/2023 5:14 AM EDT Result [facility] Cecilia Huggins MD LAB BLOOD ORDERABLES Final Re sult Performing Organization Address [facility] de Phone Number [address], [place] [phone] [employer] [facility] [address] [place] [phone] * HPV Genotypes 16,18/45 (02/16/2023 2:42 PM EDT) HPV 16 RNA NOT DETECTED NOT DETECTED [employer] HPV 18/45 RNA NOT DETECTED NOT DETECTED [employer] Comment: Methodology: Piano Mover Mediated Amplification Cervical sources are required for HPV testing. If a vaginal source from a patient who has had a total hysterectomy with removal of cervix was submitted, please contact the testing laboratory for alternative testing options. 02/16/2023 2:42 PM EDT 02/17/2023 5:14 AM EDT Cecilia Huggins MD LAB CYTOLOGY ORDERABLES Final Result Performing Organization Address [facility] de Phone Number [address], [place] [phone] [employer] [address] [place] [phone] * HEPATITIS C AB W/REFL TO HCV RNA, QN, PCR (01/14/2022 9:17 AM EST) HEPATITIS C ANTIBODY NON-REACT [facility] NON-REACT [facility] INDEX 0.02 <1.00 [facility] Comment: HCV antibody was non-reactive. There is no laboratory evidence of HCV infection. In most cases, no further action is required. However, if recent HCV exposure is suspected, a test for HCV RNA (test code 40191) is suggested. For additional information please refer to http://education.[employer]/faq/EFY83a6 (This link is being provided for informational/ educational purposes only.) 01/14/2022 9:17 AM EST us Cecilia Huggins MD HISTORICAL/NON ORDERABLE LABS Final Result Performing Organization Address [facility] Co de Phone Number [facility] [address] * HIV 1/2 ANTIGEN/ANTIBODY,FOURTH GENERATION W/RFL (01/14/2022 9:17 AM EST) HIV-1/2 ANTIGEN AND ANTIBODIES, 4TH GENERATION W/ REFLEX NON-REACT [facility] NON-REACT [facility] Comment: HIV-1 antigen and HIV-1/HIV-2 [...] purpose. For additional information please refer to http://education.[employer]/faq/MLC907 (This link is being provided for informational/ educational purposes only.) The performance of this assay has not been clinically validated in patients less than 2 years old. 01/14/2022 9:17 AM EST us Cecilia Huggins MD LAB BLOOD ORDERABLES Final Re sult Performing Organization Address [facility] Co de Phone Number [facility] [address] from Last 3 Months or Most Recently Relevant to Health Maintenance Insurance MEDICARE [facility] Care Teams Waste Water Worker Relationship Specialty Start Date End Date Cecilia Huggins MD [address] [place] [phone] PCP - General Family Medicine 01/01/22
--- OUTSIDE RECORDS SUMMARY | 2025-07-30 20:46 | XMS_ITS | Encounter Summary ---
Author Organization [employer] Address [address] [facility] [address]t [place] [address] Care Team Providers Care Sales Support Administrator Name Role Phone Cecilia Huggins MD Primary Care Provider [phone] Encounter Details Date Type Department Care Team (Late st Contact Info) Description 06/03/2023 Orders Only [facility] [address] [place], [place] [phone] Eloisa Steele MD [address] [place], [place] [phone] Social History Tobacco Use Types Packs/Day Years [...] on file documented as of this encounter Procedures Procedure Name Priority Date/Time Associated Diagnosis Comments COLPOSCOPY Routine 06/02/2023 12:00 AM EDT documented in this encounter Results * Colposcopy (06/02/2023 12:00 AM EDT) Yonas Dowling MD IN CLINIC/BEDSIDE ORDERABLES Fin al Result documented in this encounter Visit Diagnoses Not on filedocumented in this encounter Additional Health Concerns Assessment Noted Time PHQ-9 Depression Total Score: 17 023 2:38 PM EST documented as of this encounter Care Teams Sales Support Administrator Relationship Specialty Start Date End Date Cecilia Huggins MD [address] [place] [address] PCP - General Family Medicine 01/01/22 documented as of this encounter
--- OUTSIDE RECORDS SUMMARY | 2025-07-30 20:46 | XMS_ITS | Encounter Summary ---
Author Organization [employer] Address [address] [facility] [address] [place] [address] Care Team Providers Care Technical Fellow Name Role Phone Cecilia Huggins MD Primary Care Provider Encounter Details Date Type Department Care Team [...] documented as of this encounter Care Teams Technical Fellow Relationship Specialty Start Date End Date Cecilia Huggins MD [address] [place] [address] PCP - General Family Medicine 01/01/22 documented as of this encounter
--- OUTSIDE RECORDS SUMMARY | 2025-07-30 20:46 | XMS_ITS | Encounter Summary ---
Author Organization [employer] Address [address] [facility] [address] [place] [address] Care Team Providers Care Field Naturalist Name Role Phone Cecilia Huggins MD Primary Care Provider [phone] Encounter Details Date Type Department Care Team ([facility] st Contact Info) Description 07/26/2025 Orders Only [facility] [address] [place], [place] [phone] ProviderArgenis MD Social History Tobacco Use Types [...] t he electric, gas, oil or water [employer] threatened to shut off services in your [...] documented as of this encounter Care Teams Field Naturalist Relationship Specialty Start Date End Date Cecilia Huggins MD [address] [place] [address] PCP - General Family Medicine 01/01/22 documented as of this encounter
--- OUTSIDE RECORDS SUMMARY | 2025-07-30 20:46 | XMS_ITS | Encounter Summary ---
Author Organization [employer] Address [address] [facility] 7[address] [place] [address] Care Team Providers Care Train Attendant Name Role Phone Cecilia Huggins MD Primary Care Provider [phone] Reason for Visit * Reason Onset Date Comments Nurse Triage 07/25/2025 Encounter Details Date Type Department Care Team ([facility] st Contact Info) Description 07/25/2025 Telephone [facility] [address] [place], [place] [phone] Cecilia Huggins MD [address] [place] [address] Nurse Triage Social History Tobacco Use Types [...] to Jennifer Thapa to triage below at [phone]. Reports having hemmrhoid that is tender to [...] Center 07/26/2025 10:45 AM Cecilia Huggins MD [facility] Insurance verified as active per [employer] Eligibility in [facility]. Positive Triage Question: * Home treatment [...] become worse * Telephone Encounter - Fred Fox - 07/25/2025 8:29 AM EDT Symptom: Rectal Symptoms - Not Bleeding Outcome: Schedule a same-day appointment or talk to a nurse or provider today Reason: Painful lump. (Pt states that the hemorrhoid is the size of a golf ball The caller accepted this outcome. Contact pt at [phone] documented in this encounter Plan of Treatment Not on file documented as of this encounter Visit Diagnoses Not on filedocumented in this encounter Additional Health Concerns Assessment Noted Time PHQ-9 Depression Total Score: 0 05/11/20 25 1:13 PM EDT documented as of this encounter Care Teams Train Attendant Relationship Specialty Start Date End Date Cecilia Huggins MD [address] [place] [phone] PCP - General Family Medicine 01/01/22 documented as of this encounter
== END 2025-07-30 15:07 | disposition home or self-care (01) ==
LOC: HO.LNP 15:06
PROVIDERS: Visit Provider Family Medicine
DX: N72 Inflammatory disease of cervix uteri (principal); B97.7 Papillomavirus as the cause of diseases classified elsewhere
CPT/HCPCS: 87626; 88175

== ENCOUNTER 2025-07-31 08:11 | Outpatient (REF) | payer MEDICARE, MEDICAID, SELFPAY ==
--- OUTSIDE RECORDS SUMMARY | 2025-07-26 10:45 | XMS_ITS | Encounter Summary ---
Author Organization [employer] Address [address] [place] [address] [address] [place] [address] Care Team Providers Care Automatic Drill Operator Name Role Phone Cecilia Huggins MD Primary Care Provider [phone] Reason for Referral * Consultation (Routine) - Authorized Specialty Diagnoses / Procedures Referred By Conttim t Referred To Contact General Surgery Diagnoses External hemorrhoid, bleeding Cecilia Huggins MD [address] [place] [address] Phone: tel: fax: [facility] [address] [place] [address] Phone: tel: fax: Referral ID Status Reason Start Date Expiration Date Visits Requested Visits Authorized [id number] Authorized Specialty Services Required 07/26/2025 07/26/2026 1 1 Reason for Visit * Reason Comments Hemorrhoids Encounter Details Date Type Department Care Team ([facility] st Contact Info) Description 07/26/2025 10:45 AM EDT Office Visit [facility] [address] [place], [place] [phone] Cecilia Huggins MD [address] [place], [place] [phone] External hemorrhoid, bleeding (Primary Dx); Unexplained night [...] reduce inflammation - Refer to surgeon at [facility] for potential hemorrhoid removal - Prescribe biopain [...] the specialist. Recent mammogram performed at [facility]. Patient inquired about flu and COVID-19 vaccinations. Plan: - Schedule Pap smear for Wednesday at 9 AM - Retrieve mammogram results from [facility] - Advise patient to get flu and COVID-19 vaccinations at local pharmacy ([employer] or [employer]) when available at the end of July - Offer to add patient to the clinic's vaccination list for notification when vaccines are available - Administer 2nd dose of Hepatitis A vaccine during current visit documented in this encounter Plan of Treatment Pending Results Name Type Priority Associated Diagnoses Date /Time FSH Lab Routine Unexplained night sweats 07/26/2025 11:18 AM EDT Scheduled Orders Name Type Priority Associated Diagnoses Orde r Schedule Estradiol Lab Routine Unexplained night sweats Expected: 07/26/2025, Expires: 07/26/2026 Scheduled Referrals Name Type Priority Associated Diagnoses Orde r Schedule Referral to General Surgery Outpatient Referral Routine External hemorrhoid, bleeding Expected: 07/26/2025 (Approximate), Expires: 07/26/2026 documented as of this encounter Procedures Procedure Name Priority Date/Time Associated Diagnosis Comments FSH Routine 07/26/2025 11:18 AM EDT Unexplained night sweats LIPID PANEL, STANDARD Routine 07/26/2025 11:18 AM EDT Hypertriglyceridemi a documented in this encounter Results * (ABNORMAL) Lipid Panel, Standard (07/26/2025 11:18 AM EDT) Triglycerides 244(H) <150 mg/dL [facility] Comment:Desirable Triglyceri de: less than 150 mg/dLBorderline High Triglyceride 150-199 mg/dLHigh Triglyceride: 200-499 mg/dLVery High Triglyceride: greater than or equal to 5OO mg/dL Cholesterol 125 <200 mg/dL [facility] Comment:Desirable Cholestero l: less than 200 mg/dLBorderline High Cholesterol: 200-239 mg/dLHigh Cholesterol: greater than 239 mg/dL LDL Cholesterol Calculated 35 <100 mg/dL [facility] Comment:Desirable LDL: less than 100 mg/dLNear Optimal/Above Optimal LDL: 110- 129 mg/dLBorderline High LDL: 130-159 mg/dLHigh LDL: 160-189 mg/dLVery High LDL: greater than or equal to 190 mg/dL HDL Cholesterol 42 >40 mg/dL [facility] Comment:Desirable HDL: great er than 40 mg/dL Note: This HDL assay may give artificially low results in patients with liver disease. Blood Venous blood specimen / Unknown 07/26/2025 11:18 AM EDT 07/26/2025 2:14 PM EDT us Cecilia Huggins MD LAB BLOOD ORDERABLES Final Re sult [facility] [address] [place] [phone] [phone] documented in this encounter Visit Diagnoses Diagnosis External hemorrhoid, bleeding- Primary Unexplained night sweats Encounter for immunization Hypertriglyceridemia Pure hyperglyceridemia documented in this encounter Additional Health Concerns Assessment Noted Time PHQ-9 Depression Total Score: 0 05/11/20 25 1:13 PM EDT documented as of this encounter Care Teams Automatic Drill Operator Relationship Specialty Start Date End Date Cecilia Huggins MD [address] [place] [address] PCP - General Family Medicine 01/01/22 documented as of this encounter
--- OUTSIDE RECORDS SUMMARY | 2025-07-30 09:00 | XMS_ITS | Encounter Summary ---
Author Organization [employer] Address [address] [facility] 7 [place] [address] Care Team Providers Care Quality Control Director Name Role Phone Cecilia Huggins MD Primary Care Provider [phone] Reason for Visit * Reason Comments followup Coloposcopy Encounter Details Date Type Department Care Team (Latest Contact Info) Description 07/30/2025 9:00 AM EDT Procedure Visit [facility] PED[facility] [address] [place], [place] [phone] Cecilia Huggins MD [address] [place] [address] History of colposcopy (Primary Dx); High risk human papilloma virus (HPV) infection of cervix; Abnormal TSH; Subacute thyroiditis Social History Tobacco Use Types Packs/Day Years [...] Sign Reading Time Taken Comments Blood Pressure 113/70 07/30/2025 9:07 AM EDT Pulse 76 07/30/2025 9:07 AM EDT Temperature 37 C (98.6 F) 07/30/2025 9:07 AM EDT Respiratory Rate 20 07/30/2025 9:07 AM EDT Oxygen Saturation 98% 07/30/2025 9:07 AM EDT Inhaled Oxygen Concentration - - Weight 77.3 kg (170 lb 6.4 oz) 07/30/2025 9:07 A M EDT Height 175.3 cm (5' 9 ) 07/30/2025 9:07 AM EDT Body Mass Index 25.16 07/30/2025 9:07 AM EDT documented in this encounter Progress Notes * Cecilia Huggins MD - 07/30/2025 9:00 AM EDT Subjective Patient ID: Jennifer Thapa is a 60 y.o. female who presents for followup Coloposcopy. 60 y.o. here for follow-up pap smear sp normal colposcopy. Should have had pap done in 2023 but didn't followup with ROTARY DERRICK OPERATOR. Review of Systems Constitutional: Negative for appetite change, fatigue and fever. HENT: Negative for congestion, postnasal drip and rhinorrhea. Eyes: Negative for discharge and redness. Respiratory: Negative for apnea, cough, chest tightness and shortness of breath. Cardiovascular: Negative for chest pain. Gastrointestinal: Negative for abdominal pain. Endocrine: Negative for polyphagia. Genitourinary: Negative for difficulty urinating, dysuria and urgency. Musculoskeletal: Negative for arthralgias. Neurological: Negative for dizziness, light-headedness, numbness and headaches. Hematological: Negative for adenopathy. Does not bruise/bleed easily. Objective Visit Vitals BP 113/70 Pulse 76 Temp 98.6 ??F (37 ??C) (Oral) Resp 20 Ht 5' 9 (1.753 m) Wt 170 lb 6.4 oz (77.3 kg) SpO2 98% BMI 25.16 kg/m?? Smoking Status Former BSA 1.94 m?? Physical Exam Vitals reviewed. Exam conducted with a sterile instrument technician present. Constitutional: General: She is not in acute distress. Appearance: She is not ill-appearing. HENT: Head: Normocephalic and atraumatic. Nose: No congestion. Pulmonary: Effort: Pulmonary effort is normal. No respiratory distress. Breath sounds: Normal breath sounds. Chest: Chest wall: No deformity, tenderness or crepitus. Breasts: Breasts are symmetrical. Right: Normal. No inverted nipple, mass, nipple discharge, skin change or tenderness. Left: Normal. No inverted nipple, mass, nipple discharge, skin change or tenderness. Genitourinary: Urethra: No prolapse. Vagina: Normal. Cervix: Normal. Rectum: Normal. Musculoskeletal: Cervical back: Normal range of motion. Lymphadenopathy: Upper Body: Right upper body: No supraclavicular, axillary or pectoral adenopathy. Left upper body: No supraclavicular, axillary or pectoral adenopathy. Neurological: General: No focal deficit present. Mental Status: She is alert. Psychiatric: Mood and Affect: Mood normal. Assessment/Plan Problem List Items Addressed This Visit High risk human papilloma virus (HPV) infection of cervix Relevant Orders HPV High Risk with Reflex to Subtypes Pap Smear History of colposcopy - Primary Other Visit Diagnoses Abnormal TSH Relevant Orders TSH W/Reflex to FT4 Subacute thyroiditis Relevant Orders TSH W/Reflex to FT4 60 y.o. here for cervical cancer screening sp normal colposcopy. Of note, patient had 2 NILM, +hrHPV prior to colpo, normal colpo. At this moment, will repeat pap with cotesting, if normal repeat in 1 yr and then if second screening cont to be normal then repeat in 3 yrs, following ASCCP guidelines. documented in this encounter Plan of Treatment Scheduled Orders Name Type Priority Associated Diagnoses Orde r Schedule HPV High Risk with Reflex to Subtypes Lab Routine High risk human papilloma virus (HPV) infection of cervix Ordered: 07/30/2025 Pap Smear Pathology and Cytology Routine High risk human papilloma virus (HPV) infection of cervix Ordered: 07/30/2025 TSH W/Reflex to FT4 Lab Routine Abnormal TSH Subacute thyroiditis Expected: 07/30/2025 (Approximate), Expires: 07/30/2026 documented as of this encounter Visit Diagnoses Diagnosis History of colposcopy- Primary High risk human papilloma virus (HPV) infection of cervix Abnormal TSH Subacute thyroiditis documented in this encounter Additional Health Concerns Assessment Noted Time PHQ-9 Depression Total Score: 0 05/11/20 25 1:13 PM EDT documented as of this encounter Care Teams Quality Control Director Relationship Specialty Start Date End Date Cecilia Huggins MD [address] [place] [address] PCP - General Family Medicine 01/01/22 documented as of this encounter
--- OUTSIDE RECORDS SUMMARY | 2025-07-31 09:25 | XMS_ITS | Encounter Summary ---
Author Organization [employer] Address [address] [facility] 7t [place] [address] Care Team Providers Care Paraeducator Name Role Phone Cecilia Huggins MD Primary Care Provider [phone] Encounter Details Date Type Department Care Team (Late st Contact Info) Description 06/03/2023 Orders Only [facility] [address] [place], [place] [phone] Eloisa Steele MD [address] [place], [place] [phone] Social History Tobacco Use Types Packs/Day Years [...] documented as of this encounter Care Teams Paraeducator Relationship Specialty Start Date End Date Cecilia Huggins MD [address] [place] [address] PCP - General Family Medicine 01/01/22 documented as of this encounter
--- OUTSIDE RECORDS SUMMARY | 2025-07-31 09:25 | XMS_ITS | Encounter Summary ---
Author Organization [employer] Address [address] [place] [address] 7 [place] [address] Care Team Providers Care Bottom Sprayer Name Role Phone Cecilia Huggins MD Primary Care Provider [phone] Reason for Visit * Reason Onset Date Comments Appointment Request 07/26/2023 Encounter Details Date Type Department Care Team ([facility] st Contact Info) Description 07/26/2023 Telephone [facility] MED & PEDS [address] [place], [place] [phone] Cecilia Huggins MD [address] [place] [address] Appointment Request Social History Tobacco Use Types [...] Miscellaneous Notes * Telephone Encounter - Amanda Dillno - 07/26/2023 11:32 AM EDT Tc from patients spouse with pt on the line requesting a appt to f/u on US results. States patient was advised to f/u with PCP for additional lab tests including liver and A1C. Please call [phone] documented in this encounter Plan of Treatment Not on file documented as of this encounter Visit Diagnoses Not on filedocumented in this encounter Additional Health Concerns Assessment Noted Time PHQ-9 Depression Total Score: 17 023 2:38 PM EST documented as of this encounter Care Teams Bottom Sprayer Relationship Specialty Start Date End Date Cecilia Huggins MD [address] [place] [address] PCP - General Family Medicine 01/01/22 documented as of this encounter
--- OUTSIDE RECORDS SUMMARY | 2025-07-31 09:26 | XMS_ITS | Encounter Summary ---
Author Organization [employer] Address [address] [facility] 7t [place] [address] Care Team Providers Care Associate Director Financial Aid Name Role Phone Cecilia Huggins MD Primary Care Provider [phone] Encounter Details Date Type Department Care Team [...] documented as of this encounter Care Teams Associate Director Financial Aid Relationship Specialty Start Date End Date Cecilia Huggins MD [address] [place] [address] PCP - General Family Medicine 01/01/22 documented as of this encounter
--- OUTSIDE RECORDS SUMMARY | 2025-07-31 09:26 | XMS_ITS | Clinical Summary ---
Author Organization [employer] Address 75 [facility] 7t [place] [address] Care Team Providers Care First Helper Name Role Phone Cecilia Huggins MD Primary Care Provider [phone] Allergies No known active allergies Medications aspirin [...] 10:45 AM EST): Will send CXR and staff assistant, active smoker of 40 PPD. Consider sending [...] Description 07/30/2025 9:00 AM EDT Procedure Visit [facility] [address] [place] [address] Cecilia Huggins MD History of colposcopy (Primary Dx); High risk human papilloma virus (HPV) infection of cervix; Abnormal TSH; Subacute thyroiditis 07/30/2025 Travel 07/27/2025 Results Follow-Up [facility] [address] [place] [address] Cecilia Huggins MD FSH, Lipid Panel, Standard 07/26/2025 10:45 AM EDT Office Visit [facility] [address] [place] [address] Cecilia Huggins MD External hemorrhoid, bleeding (Primary Dx); Unexplained night sweats; Encounter for immunization; Hypertriglyceridemia 07/26/2025 Orders Only [facility] [address] [place] [address] Argenis Mcintosh MD 07/26/2025 Travel 07/25/2025 Telephone [facility] [address] [place] [address] Cecilia Huggins MD Nurse Triage 07/17/2025 Refill [facility] [address] [place] [address] Mary Lester MD Mixed hyperlipidemia 07/10/2025 Travel 07/10/2025 Telephone [facility] [address] [place] [address] Cecilia Huggins MD Nurse Triage 05/21/2025 Telephone [facility] [address] [place] [address] Cecilia Huggins MD Referral 05/15/2025 Results Follow-Up [facility] [address] [place] [address] Cecilia Huggins MD XR Hip 2 or 3 Views Left, CBC auto differential, Comprehensive Metabolic Panel, Additional followed-up results: 3 05/11/2025 1:00 PM EDT Office Visit [facility] [address] [place] [address] Cecilia Huggins MD Hypertriglyceridemia (Primary Dx); Vitamin D deficiency; Left hip pain; Primary hypertension 05/11/2025 Travel 05/09/2025 Telephone [facility] [address] [place] [address] Cecilia Huggins MD chart prep 05/04/2025 Patient Outreach [facility] [address] [place], [place] [phone] Cecilia Huggins MD Pre-visit Planning (SDOH screening [...] Free T4 4.61(H) 0.32 - 4.0 uIU/mL [facility] Blood 07/26/2025 11:1 8 AM EDT 07/26/2025 2:14 PM EDT Cecilia Huggins MD LAB BLOOD ORDERABLES Final Re sult Performing Organization Address City/[facility]/ZIP Co de Phone Number [facility] [address] [place] [phone] * T4, Free (07/26/2025 11:18 AM EDT) Only the most recent of2 resultswithin the time period is included. Free T4 (Free Thyroxine) 0.89 0.71 - 1.85 ng/dL [facility] Blood Venous blood specimen / Unknown 07/26/2025 11:18 AM EDT 07/26/2025 2:14 PM EDT Cecilia Huggins MD LAB BLOOD ORDERABLES Final Re sult Performing Organization Address City/[facility]/ZIP Co de Phone Number [facility] [address] [place] [phone] * (ABNORMAL) Hepatic Function Panel (07/26/2025 11:18 AM EDT) Bilirubin, Total 0.4 0.0 - 1.0 mg/dL [facility] Bilirubin, Direct 0.1 0.0 - 0.5 mg/dL [facility] Aspartate Amino Transferase 32(H) 5 - 31 U/L [facility] Alanine Aminotransferase 26 0 - 31 U/L [facility] Total Protein 7.1 6.5 - 8.0 g/dL [facility] Albumin Level 4.6 3.5 - 5.0 g/dL [facility] Alkaline Phosphatase 68 39 - 117 U/L [facility] Blood Venous blood specimen / Unknown 07/26/2025 11:18 AM EDT 07/26/2025 2:14 PM EDT us Cecilia Huggins MD LAB BLOOD ORDERABLES Final Re sult [facility] [address] [place], [place] [phone] * (ABNORMAL) Lipid Panel, Standard (07/26/2025 11:18 AM EDT) Only the most recent of2 resultswithin the time period is included. Pathologist [facility] Triglycerides 244(H) <150 mg/dL [facility] Comment:Desirable Triglyceri de: less than 150 mg/dLBorderline High Triglyceride 150-199 mg/dLHigh Triglyceride: 200-499 mg/dLVery High Triglyceride: greater than or equal to 5OO mg/dL Cholesterol 125 <200 mg/dL [facility] Comment:Desirable Cholestero l: less than 200 mg/dLBorderline High Cholesterol: 200-239 mg/dLHigh Cholesterol: greater than 239 mg/dL LDL Cholesterol Calculated 35 <100 mg/dL [facility] Comment:Desirable LDL: less than 100 mg/dLNear Optimal/Above Optimal LDL: 110- 129 mg/dLBorderline High LDL: 130-159 mg/dLHigh LDL: 160-189 mg/dLVery High LDL: greater than or equal to 190 mg/dL HDL Cholesterol 42 >40 mg/dL [facility] Comment:Desirable HDL: great er than 40 mg/dL Note: This HDL assay may give artificially low results in patients with liver disease. Blood Venous blood specimen / Unknown 07/26/2025 11:18 AM EDT 07/26/2025 2:14 PM EDT us Cecilia Huggins MD LAB BLOOD ORDERABLES Final Re sult [facility] [address] [place] [phone] * XR Hip 2 or 3 Views Left (05/15/2025 11:31 AM EDT) Anatomical Region Laterality Modality Lower Extremities, Hip Left Radiograp hic Imaging 05/15/2025 11:3 1 AM EDT Narrative 05/15/2025 11:32 AM EDT [facility] [place] [address] XRay Report Signed Patient: Jennifer Thapa MR#: [id number] 6 : 1965 Acct:[id number] Age/Sex: 60 / F ADM Date: 05/14/25 Loc: HO.HMGCX Attending Dr: Cecilia Huggins MD Ordering Physician: Cecilia Huggins MD Date of Service: 05/14/25 Procedure(s): XR hip LT min 2V Accession Number(s): [id number] cc: Cecilia Huggins MD CLINICAL HISTORY: 60 yo F with left hip pain, + throcanteric tenderness, send to [facility] Maximus Two views [...] 05/15/25 1131 DD/ 1131 TD/TT: 05/15/25 1131 Slot Floorperson: Procedure Note Donotuseinterpreter, Image - 05/15/2025 [facility] [place] [address] XRay Report Signed Patient: Jennifer Thapa JMR#: [id number] 6 : 1965Acct:[id number] Age/Sex: 60 / FADM Date: 05/14/25 Loc: HO.HMGCX Attending Dr: Cecilia Huggins MD Ordering Physician: Cecilia Huggins MD Date of Service: 05/14/25 Procedure(s): XR hip LT min 2V Accession Number(s): [id number] cc: Cecilia Huggins MD CLINICAL HISTORY: 60 yo F with left hip pain, + throcanteric tenderness,send to [facility] [facility] Maximus Two views [...] 05/15/25 1131 DD/ 1131 TD/TT: 05/15/25 1131 Slot Floorperson: Cecilia Huggins MD IMG XR PROCEDURES Final Resul t * Vitamin D, 25-Hydroxy, Total, Immunoassay (05/14/2025 12:00 AM EDT) Vitamin D 25-OH Total 90.7 >30 ng/mL [facility] Comment: Health Based Reference Values*< 20 ng/mL Kqeexarxc25-76 ng/mL Insufficient> 30 ng/mL Sufficient*Dominic BAIRD. N [...] MD LAB BLOOD ORDERABLES Final Re sult [facility] [address] [place] [phone] * (ABNORMAL) CBC auto differential (05/14/2025 12:00 AM EDT) White Blood Count 6.1 4.8 - 10.8 X10*3/uL [facility] Red Blood Count 3.86(L) 4.20 - 5.50 X10*6/uL [facility] Hemoglobin 12.0 12.0 - 16.0 g/dl [facility] Hematocrit 36.9(L) 37.0 - 47.0 % [facility] Mean Corpuscular Volume 95.6 80.0 - 98.0 fL [facility] Mean Corpuscular Hemoglobin 31.1 27.0 - 33.0 pg [facility] Mean Corpuscular HGB Conc 32.5 31.0 - 35.0 g/dl [facility] Red Cell Distribution Width 12.8 11.0 - 16.0 % [facility] Platelet Count 218 160 - 400 X10*3/uL [facility] Mean Platelet Volume 12.6(H) 9.4 - 12.3 fL [facility] Neutrophils Percent Auto 49.0 45 - 73 % [facility] Imm Gran Pct Auto 0.3 0.0 - 0.4 % [facility] Lymphocytes Percent Auto 34.5 20 - 40 % [facility] Monocytes Percent Auto 10.8 2 - 11 % [facility] Eosinophils Percent Auto 4.9(H) 0 - 4 % [facility] Basophils Percent Auto 0.5 0 - 2 % [facility] NRBC Pct Auto 0.0 0.0 - 0.2 /100WBC [facility] Neutrophils Absolute Auto 3.0 2.0 - 8.3 x10*3/uL [facility] Imm Gran Abs Auto 0.02 0.00 - 0.03 X10*3/uL [facility] Lymphocytes Absolute Auto 2.1 1.2 - 4.9 X10*3/uL [facility] Monocytes Absolute Auto 0.7 0.1 - 1.2 X10*3/uL [facility] Eosinophils Absolute Auto 0.3 0.0 - 0.4 X10*3/uL [facility] Basophils Absolute Auto 0.0 0.0 - 0.2 X10*3/uL [facility] NRBC Abs Auto 0.000 0.0 - 0.012 X10*3/uL [facility] Blood Venous blood specimen / Unknown 05/14/2025 05/14/2025 us Cecilia Huggins MD LAB BLOOD ORDERABLES Final Re sult [facility] [address] [place] [phone] * (ABNORMAL) Comprehensive Metabolic Panel (05/14/2025 12:00 AM EDT) Sodium 145 135 - 145 mmol/L [facility] Potassium 5.0 3.3 - 5.1 mmol/L [facility] Chloride 111(H) 96 - 108 mmol/L [facility] Carbon Dioxide 28 22 - 29 mmol/L [facility] Anion Gap 11(L) 12 - 20 [facility] Urea Nitrogen (BUN) 24(H) 9 - 16 mg/dL [facility] Creatinine, Serum 1.03 0.5 - 1.4 mg/dL [facility] Estimated Glomerular Filt Rate 54 [facility] Comment:Chronic Kidney Disea se: Estimated GFR < 60 mL/min/1.38j2Pskkoz Kidney Disease: Estimated GFR < 15 mL/min/1.73m2 Glucose 89 60 - 115 mg/dL [facility] Calcium 9.5 8.4 - 10.2 mg/dL [facility] Bilirubin, Total 0.3 0.0 - 1.0 mg/dL [facility] Aspartate Amino Transferase 32(H) 5 - 31 U/L [facility] Alanine Aminotransferase 25 0 - 31 U/L [facility] Total Protein 6.9 6.5 - 8.0 g/dL [facility] Albumin Level 4.6 3.5 - 5.0 g/dL [facility] Alkaline Phosphatase 45 39 - 117 U/L [facility] Blood Venous blood specimen / Unknown 05/14/2025 05/14/2025 Cecilia Huggins MD LAB BLOOD ORDERABLES Final Re sult [facility] [address] [place] [phone] * Mammography (02/16/2025 3:21 PM EDT) [...] Screening Protocols (02/16/2023 2:42 PM EDT) Comment [facility] Comment: This order for age-based cervical cancer and STI screening follows ACOG guidelines(PB 168, 140, QYX181). See individual assays for performing site location. Clinical Information: None given [facility] LMP: NONE GIVEN [employer] [facility] Prev. PAP: NONE GIVEN [facility] Prev. BX: NONE GIVEN [facility] SOURCE: None given [facility] Statement Of Adequacy: [facility] Comment: Satisfactory for evaluation. Endocervical/transformation zone component present. Interpretation/ Result: Negative for intraepithelial lesion or malignancy. [facility] COMMENT: This Pap test has been evaluated with computer assisted technology. [facility] Cytotechnologis t: [facility] Comment: KR, CT(ASCP) CT screening location: [place] [address] Review Cytotechnologis t: [facility] Comment: JNA, CT(ASCP) CT screening location: [place] [address] (Always Message) [facility] Comment: EXPLANATORY NOTE: The Pap is a [...] information. HPV nRNA E6/E7 Detected(A) Not Detected [facility] Comment: Methodology: Freight Adjuster-Mediated Amplification This assay detects E6/E7 viral messenger RNA (mRNA) from 14 high-risk HPV types (16,18,31,33,35,39,45,51,52,56,58,59,66,68). Cervical sources are required for HPV testing. If a vaginal source from a patient who has had a total hysterectomy with removal of cervix was submitted, please contact the testing laboratory for alternative testing options. For additional information, please refer to http://education.[employer]/faq/RRK594k7 (This link if provided for information/ educational purposes only.) 02/16/2023 2:42 PM EDT 02/17/2023 5:14 AM EDT Result [facility] Cecilia Huggins MD LAB BLOOD ORDERABLES Final Re sult Performing Organization Address [facility] de Phone Number [address], [place] [phone] [facility] [address] [place] [phone] * HPV Genotypes 16,18/45 (02/16/2023 2:42 PM EDT) HPV 16 RNA NOT DETECTED NOT DETECTED [facility] HPV 18/45 RNA NOT DETECTED NOT DETECTED [facility] Comment: Methodology: Freight Adjuster Mediated Amplification Cervical sources are required for HPV testing. If a vaginal source from a patient who has had a total hysterectomy with removal of cervix was submitted, please contact the testing laboratory for alternative testing options. 02/16/2023 2:42 PM EDT 02/17/2023 5:14 AM EDT Cecilia Huggins MD LAB CYTOLOGY ORDERABLES Final Result Performing Organization Address [facility] de Phone Number [address], [place] [phone] [facility] [address] [place] [phone] * HEPATITIS C AB W/REFL TO HCV [...] a test for HCV RNA (test code 42561) is suggested. For additional information please refer to http://education.[employer]/faq/ECL10a8 (This link is being provided for informational/ educational purposes only.) 01/14/2022 9:17 AM EST us Cecilia Huggins MD HISTORICAL/NON ORDERABLE LABS Final Result Performing Organization Address [facility] Co de Phone Number [facility] [address] * HIV 1/2 ANTIGEN/ANTIBODY,FOURTH GENERATION W/RFL (01/14/2022 9:17 AM EST) HIV-1/2 ANTIGEN AND ANTIBODIES, 4TH GENERATION W/ REFLEX NON-REACT BIANCA NON-REACT BIANCA [facility] Comment: HIV-1 antigen [...] purpose. For additional information please refer to http://education.[employer].eMar/faq/GBQ884 (This link is being provided for informational/ educational purposes only.) The performance of this assay has not been clinically validated in patients less than 2 years old. 01/14/2022 9:17 AM EST us Cecilia Huggins MD LAB BLOOD ORDERABLES Final Re sult Performing Organization Address [facility] Co de Phone Number [facility] [address] from Last 3 Months or Most Recently Relevant to Health Maintenance Insurance MEDICARE [facility] Care Teams First Helper Relationship Specialty Start Date End Date Cecilia Huggins MD [address] [place] [phone] PCP - General Family Medicine 01/01/22
--- OUTSIDE RECORDS SUMMARY | 2025-07-31 09:26 | XMS_ITS | Encounter Summary ---
Author Organization [employer] Address 75 [facility] 7t [place] [address] Care Team Providers Care Lab Support Tech Name Role Phone Cecilia Huggins MD Primary Care Provider [phone] Encounter Details Date Type Department Care Team ([facility] st Contact Info) Description 07/26/2025 Orders Only [facility] [address] [place], [place] [phone] ProviderArgenis MD Social History Tobacco Use Types [...] t he electric, gas, oil or water [employer] threatened to shut off services in your [...] documented as of this encounter Care Teams Lab Support Tech Relationship Specialty Start Date End Date Cecilia Huggins MD [address] [place] [address] PCP - General Family Medicine 01/01/22 documented as of this encounter
--- OUTSIDE RECORDS SUMMARY | 2025-07-31 09:26 | XMS_ITS | Encounter Summary ---
Author Organization [employer] Address [address] [facility] [address]t [place] [address] Care Team Providers Care Tour Production Supervisor Name Role Phone Cecilia Huggins MD Primary Care Provider [phone] Encounter Details Date Type Department Care Team [...] documented as of this encounter Care Teams Tour Production Supervisor Relationship Specialty Start Date End Date Cecilia Huggins MD [address] [place] [address] PCP - General Family Medicine 01/01/22 documented as of this encounter
--- OUTSIDE RECORDS SUMMARY | 2025-07-31 09:26 | XMS_ITS | Encounter Summary ---
Author Organization [employer] Address 75 [facility] 7t [place] [address] Care Team Providers Care Bunghole Borer Name Role Phone Cecilia Huggins MD Primary Care Provider [phone] Reason for Visit * Reason Onset Date Comments Results 07/27/2025 Encounter Details Date Type Department Care Team ([facility] Contact Info) Description 07/27/2025 Results Follow-Up [facility] MED & PEDS [address] [place], [place] [phone] Cecilia Huggins MD [address] [place] [address] FSH, Lipid Panel, Standard Social History Tobacco [...] documented as of this encounter Care Teams Bunghole Borer Relationship Specialty Start Date End Date Cecilia Huggins MD [address] [place] [phone] PCP - General Family Medicine 01/01/22 documented as of this encounter
[2025-07-31 09:29] LABS: INTERNATIONAL NORM RATIO 0.9 (0.9-1.1); Prothrombin Time 10.4 SEC (10.9-12.4)
[2025-07-31 09:31] LABS: Partial Thromboplastin Time 33.1 SEC (26.7-34.1)
[2025-07-31 10:00] LABS: Iron 58 mcg/dL (30-160); Percent Iron Saturation 19 % (15-50); Total Iron Binding Capacity 305 mcg/dL (228-428); Unsaturated Iron Binding 247 ug/dL
[2025-07-31 10:24] LABS: Ferritin 118 ng/mL (10-250)
[2025-07-31 11:05] LABS: Free T4 (Free Thyroxine) 0.94 ng/dL (0.71-1.85)
== END 2025-07-31 08:12 | disposition home or self-care (01) ==
LOC: HO.LAB 08:11
PROVIDERS: PCP Family Medicine; Visit Provider Family Medicine
DX: R74.01 Elevation of levels of liver transaminase levels (principal); K75.89 Other specified inflammatory liver diseases; R79.89 Other specified abnormal findings of blood chemistry; E06.1 Subacute thyroiditis
CPT/HCPCS: 36415; 82728; 83520; 83540; 84439; 84443; 84445; 85610; 85730; 86376